=== PATIENT | male | born 1990 | race Caucasian/White ===

== ENCOUNTER 2021-02-20 20:19 | Inpatient (IN) ==
[2021-02-20] MEDS ORDERED: MULTI-VITAMIN INFUSION 10 ML, THIAMINE HCL 100 MG, FOLIC ACID 1 MG in SODIUM CHLORIDE 0... IV ONE (21:29)
--- NOTE | 2021-02-20 21:40 | Emergency Department Note ---
Impression & Plan Elevated bilirubin, Alcohol abuse, Anemia, macrocytic, Confusion ED Provider Note Provider: Alexandru Boykin MD DATE OF SERVICE: 02/20/2021 CHIEF COMPLAINT: Jaundice, weakness, nausea, confusion HISTORY OF PRESENT ILLNESS: Patient is a 30-year-old gentleman with a history of alcohol abuse and IV drug abuse with esophageal varices and prior history of fungemia with bilateral lower extremity neuropathy presenting here today with friend reporting that over the past several days he has noticed worsening fatigue, confusion, and yellowish discoloration. 30-year-old gentleman extensive past medical history now presenting with some confusion and jaundice and fatigue symptoms. States his lower extremity neuropathy pain has worsened as well. Denies any back pain or abdominal pain. Denies chest pain or shortness of breath. No significant headache. Denies any trauma. Denies any bloody or black stools. Dorsal some nausea. Some decreased intake the last several days. Patient states he was recently seen at [facility] under a month ago for an infection in his right arm that is much improved after a short course of clindamycin. Patient denies any saddle anesthesia. Patient does report that he is followed with [place] in the past. [facility] records indicate patient had an AST of 359, ALT of 133, alkaline phosphatase of 354 and a T bili of 5.7 on May 17. Available blood work more recently from January 31 showed a white blood cell count of 3.5, hemoglobin 9.9, platelet count of 214, BUN 6, creatinine 0.5, sodium 132, potassium 3.4, AST 329, alkaline phosphatase 492, ALT 49, total bilirubin 2.1 REVIEW OF SYSTEMS: A total of 10 review of systems was obtained and negative except as stated above in the HPI. PAST MEDICAL HISTORY: As noted above MEDICATIONS: Reviewed home medications with the patient SOCIAL HISTORY: Continued alcohol use, denies current IV drug abuse but is on Subutex PHYSICAL EXAM: GENERAL: alert and oriented in no acute distress on stretcher but fatigued appearing Head: normocephalic and atraumatic EYES: No injection however with significant bilateral icterus PERRL NECK: Trachea midline. Supple. ENT: Mucous membranes pink and moist. LUNGS: Airway patent. No retractions. Breath sounds clear HEART: Regular tachycardia rate and rhythm. No chest wall tenderness ABDOMEN: Soft and non-tender, without guarding or rebound. SKIN: Acyanotic but jaundiced, warm, dry EXTREMITIES: Without significant swelling of the lower extremities. Patient with no obvious tenderness of the upper extremities with a healing area with kyle e slight purplish discoloration for recent infection in the distal right bicep area. NEUROLOGICAL: No aphasia. No facial droop or slurred speech. Intact strength and movement of the upper extremities. Mild tenderness in decree sensation in the bilateral feet. EK bpm sinus tachycardia without PVC or PAC. QTc 496. No acute ST segment elevation or depression noted. CONTINUOUS CARDIAC MONITORING: was ordered and showed a heart rate of bpm in sinus tachycardia 100s to 120s. Patient's laboratory studies and imaging reviewed. Differential includes gastrointestinal, infection, dehydration, metabolic abnormality, hypo/hyperglycemia, electrolyte disturbance, anemia, hypoxia, cardiac sources, intracerebral event, toxicologic, neurologic, as well as other pathologies. IMPRESSION/MEDICAL DECISION MAKING: Patient with appears to be some decompensation of his liver function. Likely a lcoholic in nature given the history and the elevated alcohol level today. No fevers reported. No leukocytosis. Procalcitonin mildly elevated but of unclear etiology. Ammonia is not elevated. C-reactive protein mildly elevated 4.8. AST and alkaline phosphatase elevated in the 500s. Lactate mildly abated at 4.3. No signs of significant renal dysfunction. Albumin significantly low. Hepatitis panel was sent. Patient without significant neurological deficits or history of trauma but some new thrombocytopenia is noted. Question if this is related to his alcohol use versus other infectious process. Does not have a clear bacterial source. Blood cultures were sent however. Macrocytosis and anemia is noted without a low B12. Given a banana bag here and some lactated Ringer's. Vital signs do not have any significant hypotension but some tachycardia is noted and denies any shortness of breath and low suspicion at this time for PE. INR is minimally elevated at 1.4. Denies current IV drug use. Has been on Suboxone per his report. Patient is on a significant dose of gabapentin for his neuropathy may be contributing to his fatigue and confusion. Will send for CT the head and the abdomen pelvis to exclude occult pathology here. Reports as below. Patient does not have a surgical abdomen and I have a low suspicion for acute intra-abdominal pathology such as cholecystitis. Discussed with the hospitalist for further care as an inpatient given his worsened LFTs. Patient does not appear to be in acute alcohol withdrawal at this time. DIAGNOSIS: Elevated bilirubin, confusion, macrocytic anemia, alcohol abuse DISPOSITION: Hospitalist will evaluate for further care Patient was agreeable with this plan. Preliminary Findings Only See Final Report For Complete Findings CT HEAD: No acute abnormality. No acute intracranial hemorrhage or abnormal extra-axial fluid collection. No acute stroke. Ventricles and sulci normal in size for age. No midline shift. No paranasal sinus air-fluid level. No fracture. Radiologist: Filiberto Spencer M.D. Study ready at 23:39 and initial results transmitted at 23:50 Preliminary Findings Only See Final Report For Complete Findings CT ABDOMEN & PELVIS With Contrast: No bowel obstruction or ileus. Abundant stool throughout the colon. No evidence for appendicitis. No evidence for diverticulitis. No free fluid. Liver is a large 28 x 2 cm in length a diffusely hypodense/fatty. Probable gallbladder sludge. No calcified gallstones. No biliary ductal dilation. Pancreas is unremarkable. Spleen is enlarged 14.8 cm length.. No obstructive uropathy. Kidneys are unremarkable. Urinary bladder is partially contracted with nonspecific wall thickening. Radiologist: Filiberto Spencer M.D. Study ready at 23:38 and initial results transmitted at 00:02 Past Med/Surg History Medical History Alcohol abuse Depression GERD (gastroesophageal reflux disease) IV drug abuse Surgical History History of esophagogastroduodenoscopy (EGD) Family History Grandfather Heart disease Diabetes Stroke Mother Diabetes Social History Smoking Status: Current every day smoker Tobacco Type: Cigarettes packs per day: 0.25; Second Hand Exposure: No; Hx Alcohol Use: Yes Alcohol type: hard liquor Alcohol Intake Frequency: 4 or More x per/Week Alcohol Intake Frequency Comment: drinks wiskey everyday Hx Substance Use: Yes Non-Prescribed Medications: Crack / Cocaine, IV Drugs and Marijuana Non-Prescribed Medications Comment: suboxone Last Used Substance: Days (ago) Last Used Substance Other:: 08/30/20 Substance Use Type Other:: subutex Preferred Language: American Communication Ability: Effective Visual Impairment: No Limitations Hearing Ability: Normal Cutting Room Supervisor Required: No Beliefs That Will Affect Care: None marital status: Single Current Living Situation: Alone Current Living Situation Comment: brother and mother current occupational status: employed 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 [employer] Feels Safe at Home: Yes Childhood Exposure to Second-Hand Smoke: No Dental Care, Regularly: No Seatbelt Use: always Sunscreen Use: Yes Assistive Devices: None Allergies Allergies Allergy/AdvReac Type Severity Reaction Status Date / Time No Known Allergies Allergy Verified 02/20/21 21:05 Home Meds Home Medications Medication Instructions Recorded Confirmed vitamin B complex 1 cap PO DAILY 08/23/20 02/20/21 clonazepam 0.5 mg tablet 0.5 mg PO DAILY PRN 08/31/20 02/20/21 sucralfate 1 gram tablet 1 g PO QID PRN tab 09/20/20 02/20/21 potassium gluconate 595 mg (99 mg) 595 mg PO DAILY 02/20/21 02/20/21 tablet Previous Rx's Medication Instructions Recorded multivitamin 1 tab PO DAILY #90 tab 07/09/20 thiamine HCl (vitamin B1) 100 mg 100 mg PO DAILY #90 tab 07/09/20 tablet folic acid 1 mg tablet 1 mg PO DAILY #90 tab 09/20/20 omeprazole 40 mg capsule,delayed 40 mg PO DAILY #30 cap 09/20/20 release gabapentin 800 mg tablet 800 mg PO TID #90 tab 11/22/20 Results & Data (ED) Vital Signs Vital Signs - 24 hr 02/20/21 20:24 02/20/21 21:00 02/20/21 21:19 Temperature 36.7 C Temperature Source Temporal Artery Scan Pulse Rate 131 H 120 H Pulse Rate from SpO2 Sensor 120 H Respiratory Rate 20 19 Respiratory Effort / Characteristics Non-Labored Spontaneous Respiratory Depth Normal Respiratory Pattern Regular Blood Pressure 112/78 121/71 Blood Pressure Mean 89 87 Pulse Oximetry 95 94 95 Oxygen Delivery Method Room Air Room Air Sepsis Recent Fever Within 48 Hours No Sepsis New/Unexplained Change in Mental Status No Sepsis Action Taken by Nursing No Action Required 02/20/21 21:30 02/20/21 22:00 02/20/21 22:30 Temperature Temperature Source Pulse Rate 123 H 112 H 120 H Pulse Rate from SpO2 Sensor 119 H 113 H 120 H Respiratory Rate 12 14 15 Respiratory Effort / Characteristics Respiratory Depth Respiratory Pattern Blood Pressure 103/71 112/72 118/79 Blood Pressure Mean 81 85 92 Pulse Oximetry 95 95 96 Oxygen Delivery Method Sepsis Recent Fever Within 48 Hours Sepsis New/Unexplained Change in Mental Status Sepsis Action Taken by Nursing 02/20/21 23:00 02/20/21 23:30 Temperature Temperature Source Pulse Rate 113 H Pulse Rate from SpO2 Sensor 113 H Respiratory Rate 10 L Respiratory Effort / Characteristics Respiratory Depth Respiratory Pattern Blood Pressure 119/80 116/78 Blood Pressure Mean 93 90 Pulse Oximetry 94 Oxygen Delivery Method Sepsis Recent Fever Within 48 Hours Sepsis New/Unexplained Change in Mental Status Sepsis Action Taken by Nursing Laboratory Data Result diagrams: 02/20/21 20:45 02/20/21 20:45 Lab Results 02/20/21 02/20/21 02/20/21 Range/Units 20:45 20:45 20:45 WBC 5.88 (4.8-10.8) K/uL RBC 2.96 L (4.7-6.1) M/uL Hgb 9.5 L (14.0-18.0) g/dL Hct 30.0 L (42-52) % MCV 101.4 H (80-100) fL MCH 32.1 (25-34) pg MCHC 31.7 L (32-36) g/dL RDW Std Deviation 56.1 H (36.4-46.3) fL RDW Coeff of Armani 15.3 H (11.5-14.5) % Plt Count 104 L (130-400) K/uL MPV 10.5 H (7.4-10.4) fL Immature Gran % (Auto) 0.3 % Neut % (Auto) 57.9 % Lymph % (Auto) 35.7 % Robeson % (Auto) 5.8 % Eos % (Auto) 0.0 % Baso % (Auto) 0.3 % Neut # (Auto) 3.40 (1.4-6.5) K/uL Lymph # (Auto) 2.10 (1.2-3.4) K/uL Robeson # (Auto) 0.34 (0.11-0.59) K/uL Eos # (Auto) 0.00 (0-0.5) K/uL Baso # (Auto) 0.02 (0-0.2) K/uL Immature Gran # (Auto) 0.02 (0.00-0.02) K/uL PT 13.4 H (9.0-12.0) Seconds INR 1.4 H (0.9-1.1) Sodium 134 L (136-145) mmol/L Potassium 3.2 L (3.5-5.1) mmol/L Chloride 93 L (98-107) mmol/L Carbon Dioxide 28 (21-32) mmol/L Anion Gap 13.0 H (3-11) BUN 3 L (7-18) mg/dl Creatinine 0.64 (0.6-1.4) mg/dl Est Cr Clr Drug Dosing 146.9 ml/min Est GFR ( Amer) > 150.0 ml/min Est GFR (Non-Af Amer) 130.5 ml/min BUN/Creatinine Ratio 5.2 L (10-20) Glucose 92 (70-99) mg/dl Lactate (0.4-2.0) mmol/L Calcium 8.6 (8.5-10.1) mg/dl Magnesium 2.2 (1.8-2.4) mg/dl Total Bilirubin 8.7 H (0.2-1) mg/dl AST 583 H (15-37) U/L ALT 73 (12-78) U/L Alkaline Phosphatase 557 H (45-117) U/L Ammonia (11-32) umol/L Troponin I < 0.015 (0-0.045) ng/ml C-Reactive Protein 4.82 H (0-0.29) mg/dl Total Protein 8.7 H (6.4-8.2) gm/dl Albumin 2.0 L (3.4-5.0) gm/dl Globulin 6.7 H (2.5-4.0) gm/dl Albumin/Globulin Ratio 0.3 L (0.9-2) Vitamin B12 (193-986) pg/ml Procalcitonin (0-0.5) ng/ml TSH 4.530 H (0.300-4.500) uIu/ml Free T4 1.10 (0.8-1.6) ng/dl Specimen Hemolysis Ethyl Alcohol mg/dL (0-3) mg/dl COVID-19 Eval Order SARS-CoV-2 (PCR) (Negative) 02/20/21 02/20/21 02/20/21 Range/Units 20:45 21:43 21:43 WBC (4.8-10.8) K/uL RBC (4.7-6.1) M/uL Hgb (14.0-18.0) g/dL Hct (42-52) % MCV (80-100) fL MCH (25-34) pg MCHC (32-36) g/dL RDW Std Deviation (36.4-46.3) fL RDW Coeff of Armani (11.5-14.5) % Plt Count (130-400) K/uL MPV (7.4-10.4) fL Immature Gran % (Auto) % Neut % (Auto) % Lymph % (Auto) % Robeson % (Auto) % Eos % (Auto) % Baso % (Auto) % Neut # (Auto) (1.4-6.5) K/uL Lymph # (Auto) (1.2-3.4) K/uL Robeson # (Auto) (0.11-0.59) K/uL Eos # (Auto) (0-0.5) K/uL Baso # (Auto) (0-0.2) K/uL Immature Gran # (Auto) (0.00-0.02) K/uL PT (9.0-12.0) Seconds INR (0.9-1.1) Sodium (136-145) mmol/L Potassium (3.5-5.1) mmol/L Chloride (98-107) mmol/L Carbon Dioxide (21-32) mmol/L Anion Gap (3-11) BUN (7-18) mg/dl Creatinine (0.6-1.4) mg/dl Est Cr Clr Drug Dosing ml/min Est GFR ( Amer) ml/min Est GFR (Non-Af Amer) ml/min BUN/Creatinine Ratio (10-20) Glucose (70-99) mg/dl Lactate 4.3 H* (0.4-2.0) mmol/L Calcium (8.5-10.1) mg/dl Magnesium (1.8-2.4) mg/dl Total Bilirubin (0.2-1) mg/dl AST (15-37) U/L ALT (12-78) U/L Alkaline Phosphatase (45-117) U/L Ammonia 13.3 (11-32) umol/L Troponin I (0-0.045) ng/ml C-Reactive Protein (0-0.29) mg/dl Total Protein (6.4-8.2) gm/dl Albumin (3.4-5.0) gm/dl Globulin (2.5-4.0) gm/dl Albumin/Globulin Ratio (0.9-2) Vitamin B12 (193-986) pg/ml Procalcitonin 1.24 H (0-0.5) ng/ml TSH (0.300-4.500) uIu/ml Free T4 (0.8-1.6) ng/dl Specimen Hemolysis Ethyl Alcohol mg/dL (0-3) mg/dl COVID-19 Eval Order SARS-CoV-2 (PCR) (Negative) 02/20/21 02/20/21 02/20/21 Range/Units 21:43 21:53 22:30 WBC (4.8-10.8) K/uL RBC (4.7-6.1) M/uL Hgb (14.0-18.0) g/dL Hct (42-52) % MCV (80-100) fL MCH (25-34) pg MCHC (32-36) g/dL RDW Std Deviation (36.4-46.3) fL RDW Coeff of Armani (11.5-14.5) % Plt Count (130-400) K/uL MPV (7.4-10.4) fL Immature Gran % (Auto) % Neut % (Auto) % Lymph % (Auto) % Robeson % (Auto) % Eos % (Auto) % Baso % (Auto) % Neut # (Auto) (1.4-6.5) K/uL Lymph # (Auto) (1.2-3.4) K/uL Robeson # (Auto) (0.11-0.59) K/uL Eos # (Auto) (0-0.5) K/uL Baso # (Auto) (0-0.2) K/uL Immature Gran # (Auto) (0.00-0.02) K/uL PT (9.0-12.0) Seconds INR (0.9-1.1) Sodium (136-145) mmol/L Potassium (3.5-5.1) mmol/L Chloride (98-107) mmol/L Carbon Dioxide (21-32) mmol/L Anion Gap (3-11) BUN (7-18) mg/dl Creatinine (0.6-1.4) mg/dl Est Cr Clr Drug Dosing ml/min Est GFR ( Amer) ml/min Est GFR (Non-Af Amer) ml/min BUN/Creatinine Ratio (10-20) Glucose (70-99) mg/dl Lactate (0.4-2.0) mmol/L Calcium (8.5-10.1) mg/dl Magnesium (1.8-2.4) mg/dl Total Bilirubin (0.2-1) mg/dl AST (15-37) U/L ALT (12-78) U/L Alkaline Phosphatase (45-117) U/L Ammonia (11-32) umol/L Troponin I (0-0.045) ng/ml C-Reactive Protein (0-0.29) mg/dl Total Protein (6.4-8.2) gm/dl Albumin (3.4-5.0) gm/dl Globulin (2.5-4.0) gm/dl Albumin/Globulin Ratio (0.9-2) Vitamin B12 1592 H (193-986) pg/ml Procalcitonin (0-0.5) ng/ml TSH (0.300-4.500) uIu/ml Free T4 (0.8-1.6) ng/dl Specimen Hemolysis Ethyl Alcohol mg/dL 293.9 H (0-3) mg/dl COVID-19 Eval Order Covid19 at [facility] SARS-CoV-2 (PCR) (Negative) 02/20/21 Range/Units 22:30 WBC (4.8-10.8) K/uL RBC (4.7-6.1) M/uL Hgb (14.0-18.0) g/dL Hct (42-52) % MCV (80-100) fL MCH (25-34) pg MCHC (32-36) g/dL RDW Std Deviation (36.4-46.3) fL RDW Coeff of Armani (11.5-14.5) % Plt Count (130-400) K/uL MPV (7.4-10.4) fL Immature Gran % (Auto) % Neut % (Auto) % Lymph % (Auto) % Robeson % (Auto) % Eos % (Auto) % Baso % (Auto) % Neut # (Auto) (1.4-6.5) K/uL Lymph # (Auto) (1.2-3.4) K/uL Robeson # (Auto) (0.11-0.59) K/uL Eos # (Auto) (0-0.5) K/uL Baso # (Auto) (0-0.2) K/uL Immature Gran # (Auto) (0.00-0.02) K/uL PT (9.0-12.0) Seconds INR (0.9-1.1) Sodium (136-145) mmol/L Potassium (3.5-5.1) mmol/L Chloride (98-107) mmol/L Carbon Dioxide (21-32) mmol/L Anion Gap (3-11) BUN (7-18) mg/dl Creatinine (0.6-1.4) mg/dl Est Cr Clr Drug Dosing ml/min Est GFR ( Amer) ml/min Est GFR (Non-Af Amer) ml/min BUN/Creatinine Ratio (10-20) Glucose (70-99) mg/dl Lactate (0.4-2.0) mmol/L Calcium (8.5-10.1) mg/dl Magnesium (1.8-2.4) mg/dl Total Bilirubin (0.2-1) mg/dl AST (15-37) U/L ALT (12-78) U/L Alkaline Phosphatase (45-117) U/L Ammonia (11-32) umol/L Troponin I (0-0.045) ng/ml C-Reactive Protein (0-0.29) mg/dl Total Protein (6.4-8.2) gm/dl Albumin (3.4-5.0) gm/dl Globulin (2.5-4.0) gm/dl Albumin/Globulin Ratio (0.9-2) Vitamin B12 (193-986) pg/ml Procalcitonin (0-0.5) ng/ml TSH (0.300-4.500) uIu/ml Free T4 (0.8-1.6) ng/dl Specimen Hemolysis Ethyl Alcohol mg/dL (0-3) mg/dl COVID-19 Eval Order SARS-CoV-2 (PCR) NEGATIVE (Negative) Administered Medications Discontinued Medications Multivitamins 10 ml/ Thiamine HCl 100 mg/ Folic Acid 1 mg/Sodium Chloride 1,011.2 mls @ 1,011.2 mls/hr IV .Q1H ONE Stop: 02/20/21 22:28 Last Infusion: 02/20/21 23:32 Dose: 0 mls/hr Documented by: [id number] Admin: 02/20/21 21:59 Dose: 1,011.2 mls/hr Documented by: [id number] Lactated Ringer's (Lr) 1,000 mls @ 999 mls/hr IV .Q1H1M ONE Stop: 02/20/21 23:59 Last Admin: 02/20/21 23:31 Dose: 999 mls/hr Documented by: [id number] Ioversol (Optiray 320 100ml) 93 ml IV ONCE ONE Stop: 02/20/21 23:13 Last Admin: 02/20/21 23:13 Dose: 93 ml Documented by: [id number] Discharge Plan Visit Data Chief Complaint: Vertigo Stated Complaint: PAIN, DIZZINESS, CONFUSION, NAUSEA, JAUNDICE ED Provider: Alexandru Boykin Discharge Problem: Elevated bilirubin, Alcohol abuse, Anemia, macrocytic, Confusion Forms Stand Alone Forms: [facility] Prescriptions Prescriptions: No Action gabapentin 800 mg tablet 800 mg PO TID Qty: 90 RF: 2 thiamine HCl (vitamin B1) 100 mg tablet 100 mg PO DAILY Qty: 90 RF: 3 multivitamin Tablet 1 tab PO DAILY Qty: 90 RF: 3 sucralfate 1 gram tablet 1 g PO QID PRN (Reason: ABD PAIN) RF: 0 omeprazole 40 mg capsule,delayed release(DR/EC) 40 mg PO DAILY Qty: 30 RF: 5 folic acid 1 mg tablet 1 mg PO DAILY Qty: 90 RF: 3 vitamin B complex Capsule 1 cap PO DAILY RF: 0 potassium gluconate 595 mg (99 mg) Tablet 595 mg PO DAILY RF: 0 clonazepam 0.5 mg Tablet 0.5 mg PO DAILY PRN (Reason: Anxiety) RF: 0 Referrals Referrals: Filiberto Burt MD [Primary Care Provider] -
[2021-02-20 21:54] LABS: Basophils # (auto) 0.02 K/uL (0-0.2); Basophils % (auto) 0.3 %; Hemoglobin 9.5 g/dL (14.0-18.0); Immature Granulocytes # (auto) 0.02 K/uL (0.00-0.02); Immature Granulocytes % (auto) 0.3 %; Lymphocytes % (auto) 35.7 %; Mean Corpuscular Hemoglobin 32.1 pg (25-34); Mean Corpuscular Hgb Conc 31.7 g/dL (32-36); Mean Corpuscular Volume 101.4 fL (80-100); Mean Platelet Volume 10.5 fL (7.4-10.4); Monocytes # (auto) 0.34 K/uL (0.11-0.59); Monocytes % (auto) 5.8 %; Neutrophils % (auto) 57.9 %; Platelet Count 104 K/uL (130-400); RDW Coefficient of Variation 15.3 % (11.5-14.5); RDW Standard Deviation 56.1 fL (36.4-46.3); Red Blood Count 2.96 M/uL (4.7-6.1); White Blood Count 5.88 K/uL (4.8-10.8)
[2021-02-20 22:02] LABS: INR 1.4 (0.9-1.1); Prothrombin Time 13.4 Seconds (9.0-12.0)
[2021-02-20 22:03] LABS: Alanine Aminotransferase 73 U/L (12-78); Aspartate Aminotransferase 583 U/L (15-37); BUN Creatinine Ratio 5.2 (10-20); Blood Urea Nitrogen 3 mg/dl (7-18); C Reactive Protein 4.82 mg/dl (0-0.29); Calcium 8.6 mg/dl (8.5-10.1); Carbon Dioxide 28 mmol/L (21-32); Chloride 93 mmol/L (98-107); Creatinine Clr Calc Pharmacy 146.9 ml/min; Est GFR (African American) > 150.0 ml/min; Est GFR (Non-African American) 130.5 ml/min; Glucose 92 mg/dl (70-99); Magnesium 2.2 mg/dl (1.8-2.4); Potassium 3.2 mmol/L (3.5-5.1); Sodium 134 mmol/L (136-145)
[2021-02-20 22:12] LABS: Albumin Globulin Ratio 0.3 (0.9-2); Alkaline Phosphatase 557 U/L (45-117); Bilirubin,Total 8.7 mg/dl (0.2-1); Globulin 6.7 gm/dl (2.5-4.0); Total Protein 8.7 gm/dl (6.4-8.2); Troponin I < 0.015 ng/ml (0-0.045)
[2021-02-20] MEDS ORDERED: LACTATED RINGER'S 1,000 ML IV ONE (22:59)
[2021-02-20] MEDS ORDERED: OPTIRAY 320 100ml IV ONE (23:12)
--- NOTE | 2021-02-20 23:58 | History & Physical Report ---
Date of Service February 20, 2021 Assessment & Plan (1) Acute on chronic alcoholic liver disease: Plan: Patient presents with symptoms of jaundice, weakness and confusion. Total bilirubin has increased from 1.4-8.7 INR has increased from 1.1-1.4 AST has increased from 274-583 Alkaline phosphatase has increased from 340-557 CT scan shows hepatosplenomegaly, but no evidence of cirrhosis. Ammonia level is normal at 13.3 We will order an MRCP for the a.m. Consult gastroenterology (2) Hepatosplenomegaly: Plan: See above (3) Alcoholism: Plan: Place on [facility] protocol. I had a long discussion with patient and his brother in the ED regarding need for cessation Thiamine 100 mg p.o. every morning Folic acid 1 mg p.o. every morning Multivitamin daily (4) Anemia, macrocytic: Plan: Hemoglobin 9.5 upon admission, with range 9.3-11.3 (5) IV drug abuse: Plan: Chronic issue, discussed need for cessation (6) Depression: Plan: Depression/anxiety- Continue clonazepam (7) GERD (gastroesophageal reflux disease): Plan: Continue omeprazole/pantoprazole Continue sucralfate (8) Neuropathy, peripheral: Plan: Continue vitamin supplementation (9) Confusion: Plan: See above (10) Weakness: Plan: See above (11) Elevated bilirubin: Plan: See above (12) Coagulopathy: Plan: See above History of Present Illness Chief Complaint: The patient presents to the emergency department with his brother, with symptoms of jaundice, generalized weakness and confusion Primary Care Provider: Filiberto Burt MD The patient is a 30-year-old male with a past medical history of alcohol abuse, alcoholism, [employer], continuous IV drug abuse, esophageal varices positive blood cultures, peripheral neuropathy, folate deficiency, GERD, depression and bilateral lower extremity pain. He presents to the emergency department with complaint of yellowing of skin, generalized weakness and confusion over the past several days. He continues to have daily alcohol use, and alcohol level upon admission was 293.9. Other significant laboratory abnormalities: Hemoglobin 9.5, hematocrit 30.0, platelets 104, sodium 134, potassium 3.2, lactic acid 4.3, INR 1.4, albumin 2.0, AST 583, ALT 73, alkaline phosphatase 557, total bilirubin 8.7. COVID-19 test negative in the ED CT scan of abdomen and pelvis: Abundant stool throughout the colon no appendicitis or diverticulitis. No free fluid. Liver is a large 28 x 2 cm in length and diffusely hypodense/fatty. Probable gallbladder sludge. No calcified gallstones. No biliary ductal dilatation. Pancreas is unremarkable. Spleen is enlarged at 14.[address] scan of the head was normal Allergies Allergy/AdvReac Type Severity Reaction Status Date / Time No Known Allergies Allergy Verified 02/20/21 21:05 Home Medications Medication Instructions Recorded Confirmed Type multivitamin 1 tab PO DAILY #90 tab 07/09/20 02/20/21 Rx thiamine HCl (vitamin B1) 100 mg 100 mg PO DAILY #90 tab 07/09/20 02/20/21 Rx tablet vitamin B complex 1 cap PO DAILY 08/23/20 02/20/21 History clonazepam 0.5 mg tablet 0.5 mg PO DAILY PRN 08/31/20 02/20/21 History folic acid 1 mg tablet 1 mg PO DAILY #90 tab 09/20/20 02/20/21 Rx omeprazole 40 mg capsule,delayed 40 mg PO DAILY #30 cap 09/20/20 02/20/21 Rx release sucralfate 1 gram tablet 1 g PO QID PRN tab 09/20/20 02/20/21 History gabapentin 800 mg tablet 800 mg PO TID #90 tab 11/22/20 02/20/21 Rx potassium gluconate 595 mg (99 mg) 595 mg PO DAILY 02/20/21 02/20/21 History tablet Past Med/Surg History Medical History Alcohol abuse Depression GERD (gastroesophageal reflux disease) IV drug abuse Surgical History History of esophagogastroduodenoscopy (EGD) Family History Grandfather Heart disease Diabetes Stroke Mother Diabetes Social History Smoking Status: Current every day smoker Tobacco Type: Cigarettes packs per day: 0.25; Second Hand Exposure: No; Hx Alcohol Use: Yes Alcohol type: hard liquor Alcohol Intake Frequency: 4 or More x per/Week Alcohol Intake Frequency Comment: drinks wiskey everyday Hx Substance Use: Yes Non-Prescribed Medications: Crack / Cocaine, IV Drugs and Marijuana Non-Prescribed Medications Comment: suboxone Last Used Substance: Days (ago) Last Used Substance Other:: 08/30/20 Substance Use Type Other:: subutex Preferred Language: [place] Communication Ability: Effective Visual Impairment: No Limitations Hearing Ability: Normal Communication Equipment Mechanic Required: No Beliefs That Will Affect Care: None marital status: Single Current Living Situation: Alone Current Living Situation Comment: brother and mother current occupational status: employed 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 [employer] Feels Safe at Home: Yes Childhood Exposure to Second-Hand Smoke: No Dental Care, Regularly: No Seatbelt Use: always Sunscreen Use: Yes Assistive Devices: None Review of Systems Review of Systems: The patient denies chest pain, palpitations, shortness of breath, dyspnea on exertion, cough, lower extremity swelling, sore throat, fevers, chills, sweats, nausea, vomiting, diarrhea , constipation, blood in urine or stool, dysuria, urinary frequency or urgency, lightheadedness, dizziness, headache, memory loss, loss of consciousness, rash, abnormal bruising or bleeding, imbalance, focal weakness, numbness or tingling in arms or legs, generalized arthralgias or myalgias, back or neck pain, or night sweats. The review of systems is otherwise negative other than for that already noted above, and at least 10 systems have been reviewed. Physical Exam Physical Exam: The patient is awake, alert and oriented 3, appears jaundiced, normocephalic and atraumatic, lying in bed and in no acute distress. HEENT--PERRL, EOMI, mucous membranes and oropharynx dry. Scleral icterus noted Neck--supple. No JVD. No bruits. Thyroid normal, trachea midline, no adenopathy. Heart--normal S1 and S2. No murmurs, rubs or gallops. Lungs--clear bilaterally, no respiratory distress, no accessory muscle use. Abdomen--normal bowel sounds and soft. Nontender. Nondistended. Large palpable liver Extremities--no cyanosis or clubbing. No edema. Dermatologic--jaundice Neurologic--cranial nerves II through XII grossly intact. Rheumatologic--normal range of motion. Psychiatric--normal affect. Results & Data Results & Data ([facility]) Vital Signs (Past 12 Hours) Vital Signs Temp Pulse Resp BP Pulse Ox 02/20/21 23:30 113 H 10 L 116/78 94 02/20/21 23:00 119/80 02/20/21 22:30 120 H 15 118/79 96 02/20/21 22:00 112 H 14 112/72 95 02/20/21 21:30 123 H 12 103/71 95 02/20/21 21:19 95 02/20/21 21:00 120 H 19 121/71 94 02/20/21 20:24 98.1 F 131 H 20 112/78 95 Laboratory Results Laboratory Results WBC 5.88 K/uL (4.8-10.8) 02/20/21 20:45 RBC 2.96 M/uL (4.7-6.1) L 02/20/21 20:45 Hgb 9.5 g/dL (14.0-18.0) L 02/20/21 20:45 Hct 30.0 % (42-52) L 02/20/21 20:45 MCV 101.4 fL (80-100) H 02/20/21 20:45 MCH 32.1 pg (25-34) 02/20/21 20:45 MCHC 31.7 g/dL (32-36) L 02/20/21 20:45 RDW Std Deviation 56.1 fL (36.4-46.3) H 02/20/21 20:45 RDW Coeff of Armani 15.3 % (11.5-14.5) H 02/20/21 20:45 Plt Count 104 K/uL (130-400) L 02/20/21 20:45 MPV 10.5 fL (7.4-10.4) H 02/20/21 20:45 Immature Gran % (Auto) 0.3 % 02/20/21 20:45 Neut % (Auto) 57.9 % 02/20/21 20:45 Lymph % (Auto) 35.7 % 02/20/21 20:45 Weber % (Auto) 5.8 % 02/20/21 20:45 Eos % (Auto) 0.0 % 02/20/21 20:45 Baso % (Auto) 0.3 % 02/20/21 20:45 Neut # (Auto) 3.40 K/uL (1.4-6.5) 02/20/21 20:45 Lymph # (Auto) 2.10 K/uL (1.2-3.4) 02/20/21 20:45 Weber # (Auto) 0.34 K/uL (0.11-0.59) 02/20/21 20:45 Eos # (Auto) 0.00 K/uL (0-0.5) 02/20/21 20:45 Baso # (Auto) 0.02 K/uL (0-0.2) 02/20/21 20:45 Immature Gran # (Auto) 0.02 K/uL (0.00-0.02) 02/20/21 20:45 PT 13.4 Seconds (9.0-12.0) H 02/20/21 20:45 INR 1.4 (0.9-1.1) H 02/20/21 20:45 Sodium 134 mmol/L (136-145) L 02/20/21 20:45 Potassium 3.2 mmol/L (3.5-5.1) L 02/20/21 20:45 Chloride 93 mmol/L (98-107) L 02/20/21 20:45 Carbon Dioxide 28 mmol/L (21-32) 02/20/21 20:45 Anion Gap 13.0 (3-11) H 02/20/21 20:45 BUN 3 mg/dl (7-18) L 02/20/21 20:45 Creatinine 0.64 mg/dl (0.6-1.4) 02/20/21 20:45 Est Cr Clr Drug Dosing 146.9 ml/min 02/20/21 20:45 Est GFR ( Amer) > 150.0 ml/min 02/20/21 20:45 Est GFR (Non-Af Amer) 130.5 ml/min 02/20/21 20:45 BUN/Creatinine Ratio 5.2 (10-20) L 02/20/21 20:45 Glucose 92 mg/dl (70-99) 02/20/21 20:45 Lactate 4.0 mmol/L (0.4-2.0) H* 02/21/21 00:23 Calcium 8.6 mg/dl (8.5-10.1) 02/20/21 20:45 Magnesium 2.2 mg/dl (1.8-2.4) 02/20/21 20:45 Total Bilirubin 8.7 mg/dl (0.2-1) H 02/20/21 20:45 AST 583 U/L (15-37) H 02/20/21 20:45 ALT 73 U/L (12-78) 02/20/21 20:45 Alkaline Phosphatase 557 U/L (45-117) H 02/20/21 20:45 Ammonia 13.3 umol/L (11-32) 02/20/21 21:43 Troponin I < 0.015 ng/ml (0-0.045) 02/20/21 20:45 C-Reactive Protein 4.82 mg/dl (0-0.29) H 02/20/21 20:45 Total Protein 8.7 gm/dl (6.4-8.2) H 02/20/21 20:45 Albumin 2.0 gm/dl (3.4-5.0) L 02/20/21 20:45 Globulin 6.7 gm/dl (2.5-4.0) H 02/20/21 20:45 Albumin/Globulin Ratio 0.3 (0.9-2) L 02/20/21 20:45 Vitamin B12 1592 pg/ml (193-986) H 02/20/21 21:43 Procalcitonin 1.24 ng/ml (0-0.5) H 02/20/21 20:45 TSH 4.530 uIu/ml (0.300-4.500) H 02/20/21 20:45 Free T4 1.10 ng/dl (0.8-1.6) 02/20/21 20:45 Specimen Hemolysis 02/20/21 20:45 Urine Color Dark Yellow 02/21/21 01:35 Urine Appearance Clear (Clear) 02/21/21 01:35 Urine pH 6.5 (4.5-7.5) 02/21/21 01:35 Ur Specific [place] > 1.045 (1.000-1.030) H 02/21/21 01:35 Urine Protein Trace (Negative) H 02/21/21 01:35 Urine Glucose (UA) Negative (Negative) 02/21/21 01:35 Urine Ketones Negative (Negative) 02/21/21 01:35 Urine Blood Negative (Negative) 02/21/21 01:35 Urine Nitrite Positive (Negative) A 02/21/21 01:35 Urine Bilirubin 3+ (Negative) H 02/21/21 01:35 Urine Urobilinogen Negative (Negative) 02/21/21 01:35 Ur Leukocyte Esterase Trace (Negative) H 02/21/21 01:35 Urine WBC (Auto) 10-30 /hpf (0-5) H 02/21/21 01:35 Urine RBC (Auto) 0-4 /hpf (0-4) 02/21/21 01:35 U Hyaline Cast (Auto) 0 /lpf (0-5) 02/21/21 01:35 U Epithel Cells (Auto) 10-20 /lpf (0-5) H 02/21/21 01:35 Urine Bacteria (Auto) 4+ (Negative) H 02/21/21 01:35 Ethyl Alcohol mg/dL 293.9 mg/dl (0-3) H 02/20/21 21:53 COVID-19 Eval Order Covid19 at [facility] 02/20/21 22:30 SARS-CoV-2 (PCR) NEGATIVE (Negative) 02/20/21 22:30 Diagnostic Findings [facility] Patient: AMRIK PACHECO (Male) : 88 Status: ER Date: 02/20/21 23:17 Room #: History: LIGHTHEADEDNESS ELEVATED LFT'S APPENDIX PRESENT OPTIRAY 320 93ML EK/MALICK Slices: 60 Priors: Tech: Daniel Chin @ [id number] Exams: CT HEAD Contrast: Accession Numbers: [id number] Referring Physician: REFERRED SELF Preliminary Findings Only See Final Report For Complete Findings CT HEAD: No acute abnormality. No acute intracranial hemorrhage or abnormal extra-axial fluid collection. No acute stroke. Ventricles and sulci normal in size for age. No midline shift. No paranasal sinus air-fluid level. No fracture. Radiologist: Filiberto Spencer M.D. Study ready at 23:39 and initial results transmitted at 23:50 *This report constitutes a preliminary interpretation only. Non-acute findings felt to be unrelated to the clinical presentation may not be discussed in this report. The study will be interpreted and a final report will be generated by the local Radiologist the following shift. To reach the hospital radiology department call [phone]. If a discrepancy is found between the preliminary and final interpretations of this study, please notify us via our Client Portal at [email or web address].You can also fax this report with a description of the discrepancy, or include the final report, to our daytime fax number [phone].If faxing, please indicate the severity of discrepancy using one of the following categories: [ ] 1 - Agree/Informational [ ] 2 - Unlikely to Affect Management [ ] 3 - Possible Eventual Change of Management [ ] 4 - Probable Immediate Change of Management For all other patient related information, please fax us at [phone]. [id number] [facility] Patient: AMRIK PACHECO (Male) : 88 Status: ER Date: 02/20/21 23:18 Room #: History: LIGHTHEADEDNESS ELEVATED LFT'S APPENDIX PRESENT OPTIRAY 320 93ML EK/MALICK Slices: 842 Priors: Tech: Daniel Chin @ [id number] Exams: CT ABDOMEN & PELVIS With Contrast Contrast: IV Amt: 93ML Accession Numbers: [id number] Referring Physician: REFERRED SELF Preliminary Findings Only See Final Report For Complete Findings CT ABDOMEN & PELVIS With Contrast: No bowel obstruction or ileus. Abundant stool throughout the colon. No evidence for appendicitis. No evidence for diverticulitis. No free fluid. Liver is a large 28 x 2 cm in length a diffusely hypodense/fatty. Probable gallbladder sludge. No calcified gallstones. No biliary ductal dilation. Pancreas is unremarkable. Spleen is enlarged 14.8 cm length.. No obstructive uropathy. Kidneys are unremarkable. Urinary bladder is partially contracted with nonspecific wall thickening. Radiologist: Filiberto Spencer M.D. Study ready at 23:38 and initial results transmitted at 00:02 *This report constitutes a preliminary interpretation only. Non-acute findings felt to be unrelated to the clinical presentation may not be discussed in this report. The study will be interpreted and a final report will be generated by the local Radiologist the following shift. To reach the hospital radiology department call [phone]. If a discrepancy is found between the preliminary and final interpretations of this study, please notify us via our Client Portal at [email or web address].You can also fax this report with a description of the discrepancy, or include the final report, to our daytime fax number [phone].If faxing, please indicate the severity of discrepancy using one of the following categories: [ ] 1 - Agree/Informational [ ] 2 - Unlikely to Affect Management [ ] 3 - Possible Eventual Change of Management [ ] 4 - Probable Immediate Change of Management For all other patient related information, please fax us at [phone]. [id number] Code Status & VTE Plan Code Status Full code VTE Prophylaxis Plan VTE Prophylaxis will be ordered: Yes PG Care Time/CCT Total # of Minutes Spent Total Time Spent with Patient: Total time spent is greater than 50% in coordination of care (as documented) at patient's floor/unit and/or counseling patient: Coding Level of Care Code 96163 Initial Inpt Care Lvl 3 Diagnoses Hepatosplenomegaly R16.2 Alcoholism F10.20 Anemia, macrocytic D53.9 IV drug abuse F19.10 Depression F32.9 GERD (gastroesophageal reflux disease) K21.9 Neuropathy, peripheral G62.9 Confusion R41.0 Weakness R53.1 Elevated bilirubin R17 Coagulopathy D68.9 Acute on chronic alcoholic liver disease K70.9
[2021-02-21] MEDS ORDERED: ATIVAN IV ALCOHOL WITHDRAWL IV PRN (01:19)
[2021-02-21] MEDS ORDERED: LORazepam 2 MG/4 ML VIAL IV PRN ×2 (01:19→12:17)
[2021-02-21] MEDS ORDERED: LORazepam 1 MG/2 ML VIAL IV PRN ×2 (01:19→12:17)
[2021-02-21] MEDS ORDERED: LORazepam 3 MG/6 ML VIAL IV PRN (01:19)
[2021-02-21 01:48] LABS: Appearance Urine Clear (Clear); Bacteria Urine Automated 4+ (Negative); Blood Urine Negative (Negative); Color Urine Dark Yellow; Glucose Urine UA Negative (Negative); Ketones Urine Negative (Negative); Leukocyte Esterase Urine Trace (Negative); Nitrite Urine Positive (Negative); Protein Urine Trace (Negative); RBC Urine Automated 0-4 /hpf (0-4); Specific Gravity Urine > 1.045 (1.000-1.030); Urobilinogen Urine Negative (Negative); pH Urine 6.5 (4.5-7.5)
[2021-02-21 01:53] LABS: Bilirubin Urine 3+ (Negative)
[2021-02-21 02:14] LABS: Cast Urine Automated 0 /lpf (0-5)
[2021-02-21] MEDS ORDERED: LORazepam 1 MG TAB PO PRN (02:47)
[2021-02-21] MEDS ORDERED: ONDANSETRON INJ 2 MG/ML 2 ML VIAL IV PRN (02:47)
[2021-02-21] MEDS: NSS + 20MEQ KCL 20 MEQ/1,000 ML BAG IV SCH ×2 (03:38→15:43)
[2021-02-21 06:12] LABS: Alanine Aminotransferase 57 U/L (12-78); Albumin Globulin Ratio 0.3 (0.9-2); Albumin Level 1.6 gm/dl (3.4-5.0); Alkaline Phosphatase 435 U/L (45-117); Aspartate Aminotransferase 453 U/L (15-37); Blood Urea Nitrogen 2 mg/dl (7-18); Calcium 7.5 mg/dl (8.5-10.1); Carbon Dioxide 29 mmol/L (21-32); Chloride 101 mmol/L (98-107); Creatinine Clr Calc Pharmacy 188.9 ml/min; Est GFR (African American) > 150.0 ml/min; Est GFR (Non-African American) 144.4 ml/min; Globulin 5.1 gm/dl (2.5-4.0); Glucose 79 mg/dl (70-99); Potassium 3.2 mmol/L (3.5-5.1); Sodium 136 mmol/L (136-145); Total Protein 6.7 gm/dl (6.4-8.2)
--- NOTE | 2021-02-21 07:15 | CT Scan Report ---
CT head/brain wo con CLINICAL HISTORY: 30 years-old Male with lightheaded, confused. Acutely altered mental status with c onfusion TECHNIQUE: Multiple axial CT images of the head were obtained without contrast. A dose lowering tech nique was utilized adhering to the principles of ALARA. COMPARISON: Head CT 07/07/2020 FINDINGS: No acute intracranial hemorrhage, midline shift, intracranial mass, hydrocephalus, territorial ischem ia or abnormal extra-axial collection. The calvarium is intact. Chronic appearing nasal bone fracture. The paranasal sinuses, mastoid air ce lls, and middle ear cavities are clear. IMPRESSION: No acute intracranial abnormality. ACT 112: Negative or not required by law. The above report was generated using voice recognition software. It may contain grammatical, syntax o r spelling errors. Electronically signed by: Cristóbal Lion M.D. 02/21/2021 7:14 AM
[2021-02-21 07:32] LABS: Hematocrit (blood only) 20.8 % (42-52); Hemoglobin 6.6 g/dL (14.0-18.0); Mean Corpuscular Hemoglobin 31.9 pg (25-34); Mean Corpuscular Hgb Conc 31.7 g/dL (32-36); Mean Corpuscular Volume 100.5 fL (80-100); RDW Coefficient of Variation 15.4 % (11.5-14.5); RDW Standard Deviation 56.4 fL (36.4-46.3); Red Blood Count 2.07 M/uL (4.7-6.1); White Blood Count 1.94 K/uL (4.8-10.8)
[2021-02-21] MEDS ORDERED: OCTREOTIDE ACETATE 50 MCG in SYRINGE 9.5 ML IV STA (07:37)
[2021-02-21] MEDS ORDERED: SODIUM CHLORIDE 0.9% 250 ML IV PRN ×3 (07:51→23:59)
[2021-02-21 07:54] LABS: Basophilic Stippling 1+; Basophils # (auto) 0.01 K/uL (0-0.2); Basophils % (auto) 0.5 %; Lymphocytes # (auto) 0.63 K/uL (1.2-3.4); Lymphocytes % (auto) 32.5 %; Mean Platelet Volume 10.1 fL (7.4-10.4); Monocytes # (auto) 0.18 K/uL (0.11-0.59); Monocytes % (auto) 9.3 %; Neutrophils # (auto) 1.12 K/uL (1.4-6.5); Neutrophils % (auto) 57.7 %; Platelet Count 45 K/uL (130-400); Platelet Estimate Decreased (Normal); Stomatocytes 1+
[2021-02-21] MEDS: POTASSIUM CHLORIDE / WTR 10 MEQ/100 ML PLCT IV SCH ×4 (08:12→12:21)
[2021-02-21] MEDS: cefTRIAXone SODIUM 1,000 MG in DEXTROSE 5% 50 ML IV SCH (08:12)
[2021-02-21] MEDS: OCTREOTIDE ACETATE 500 MCG in 0.9 % SODIUM CHLORIDE 100 ML IV SCH ×2 (08:12→16:44)
[2021-02-21] MEDS: THIAMINE HCL 100 MG TAB PO SCH (08:13)
[2021-02-21] MEDS: FOLIC ACID 1 MG TAB PO SCH (08:13)
[2021-02-21] MEDS: VITAMIN B COMPLEX TAB PO SCH (08:14)
[2021-02-21] MEDS: MULTIVITAMIN TAB PO SCH (08:14)
--- NOTE | 2021-02-21 08:17 | XRay Report ---
XR chest 1V portable HISTORY: weakness COMPARISON: Chest CTA 07/07/2020. FINDINGS: The lungs are clear. Cardiac silhouette is normal in size. No pleural effusions. No pneumot horax. IMPRESSION: No acute process. ACT 112: Negative or not required by law. Electronically signed by: New Yepez M.D. 02/21/2021 8:16 AM
--- NOTE | 2021-02-21 08:38 | CT Scan Report ---
ABDOMEN AND PELVIS CT WITH IV CONTRAST CT DOSE: 954.52 mGy.cm HISTORY: Acutely elevated LFTs elevated LFT/bili TECHNIQUE: Multiaxial CT images of the abdomen and pelvis were performed following the IV administrat ion of 93 cc of Optiray, A dose lowering technique was utilized adhering to the principles of ALARA. COMPARISON STUDY: MRCP 02/21/2021, CT abdomen pelvis 07/07/2020 FINDINGS: The imaged inferior cardiac chambers are unremarkable. The lung bases appear clear. No pneumatosis or pneumoperitoneum. The spleen is enlarged measuring up to 17.5 cm in length. Severe hepatic steatosis with hepatomegaly. No evidence of cirrhosis or hepatic mass. Patency of the hepatic and portal veins . Hyperattenuating material within the gallbladder lumen is suggestive of sludge. There is partial di stention of the gallbladder with mild wall thickening and equivocal pericholecystic stranding. No carlita iary ductal dilation. Unremarkable kidneys. No hydronephrosis. Urinary bladder wall thickening with partial distention. Unr emarkable prostate. Mild atherosclerosis of the aorta without aneurysm. No adenopathy. Unremarkable I VC. No bowel obstruction or bowel wall thickening. There is mild fecal retention. Noninflamed appendi x. Scattered small bowel air-fluid levels. Unremarkable soft tissues. No acute fracture. IMPRESSION: 1. Partial distention of the gallbladder is noted with suggested gallbladder sludge and mild wall thi ckening with equivocal pericholecystic stranding. Findings should be correlated with clinical present ation to exclude acute cholecystitis. 2. No biliary ductal dilation. 3. Hepatosplenomegaly with severe hepatic steatosis. 4. No bowel obstruction or bowel wall thickening. Normal appendix. ACT 112: Negative or not required by law. The above report was generated using voice recognition software. It may contain grammatical, syntax o r spelling errors. Electronically signed by: Cristóbal Lion M.D. 02/21/2021 8:36 AM
[2021-02-21] MEDS ORDERED: NON-FORMULARY MEDICATION (Potassium Gluconate 595 mg (99 mg) Tablet) PO SCH (09:00)
[2021-02-21] MEDS ORDERED: PANTOprazole 40 MG TAB PO SCH (09:00)
[2021-02-21] MEDS ORDERED: FOLIC ACID 1 MG TAB PO SCH (09:00)
[2021-02-21] MEDS ORDERED: GABAPENTIN 800 MG TAB PO SCH (09:00)
[2021-02-21] MEDS ORDERED: THIAMINE HCL 100 MG TAB PO SCH (09:00)
--- NOTE | 2021-02-21 09:04 | Critical Care Consultation ---
Date of Consultation February 21, 2021 Assessment & Plan (1) Acute on chronic alcoholic liver disease: Reason Critically Ill: 30 year old male w/ PMHx of alcohol use disorder, current IVDU, and hx of esophageal varices, and hx of pos blood cultures who presents w/ intermittent AMS and jaundice secondary to alcohol use disorder. He is transferred to ICU because of Hb drop from 9.5 to 6.6 in 10 hours overnight, concerning for acute blood loss anemia. Current mentation is appropriate. Neuro - [facility] ICU: negative Head CT: no acute process. tobacco use disorder: will order nicotine patch if develops withdrawal symptoms. Cardiac - tachycardia, w/ BPs 90s/60. MAP appropriate, but will monitor - likely from acute blood loss anemia w/ some element etoh withdrawal. ecg sinus tach w/o ischemic changes. continue telemetry. Respiratory - Satting 91-92 on RA, denies resp complaint. Titrate >90%. Incentive spirometry. Repeated cxr because of physical exam, result neg. GI - NPO acute alcoholic hepatitis Isolated AST elevation, consistent w/ etoh pattern abd us ruq, canceled because has MRCP ordered. CT abd/pelv: CT abd pelvis: parital distention of gallbladder w/ sludge and mild wall thickening w/ equivocal pericholecystic stranding. Hepatosplenomegaly w/ severe hepatic steatosis. acute blood loss anemia 9.5(9pm)->6.6 (7AM)->7.3(1:30PM, s/p 1u platelets and pRBC). W/ hx of esophageal varices, concerning for UGIB. Considered lab error because multiple abrupt declines in CBC. However, less likely because Hb 6.6->7.3 after 1 unit platelets and 1 unit of PRBCs. S/P 1 u platelets and 1 uPRBC this AM Will check CBC at 1:30PM and q4h thereafter. Will assess whether another unit of PRBC indicated and will continue discussion w/ GI to determine if EGD indicated. GI consulted. Started on empiric Rocephin and octreotide for possible bleeding varices. RENAL/LYTES - Check CMP, Mg, Phos Replace lytes as needed. metabolic acidosis (presumed), improving w/ positive lactate. less likely alcoholic ketoacidosis w/ UA neg for ketones No blood gas obtained. Would presume resp compensation. No tachypnea noted. anion gap since closed - No concerns at this time. Voiding. ENDO - No hx of DM or thyroid disease. TSH 4.53H, w/ normal fT4 1.1. May be transient subclinical hypothyroidism 2/2 illness; no treatment indicated. Previous TSH in 06/2020 wnl. HEME - hold chemo ppx anemia, thrombocytopenia, leukopenia Hb 9.5 dropped to 6.6 overnight (10 hours). ordered peripheral smear. Last smear in 07/2020, did not suggest myelodysplasia. Considered lab error as above. Follow CBC as above. See workup below. alcohol use disorder 5mg iv vitamin k. 500 mg thiamine today, 200 mg daily after. Currently on AWSS IV ativan protocol. Changed AWSS score of 6,7->1 mg IV ativan to score of 5-7. After off NPO, will switch to Librium taper (dose adjusted for liver disease). Of note, patient takes ~0.5mg of Klonopin daily at home PRN for anxiety. Ordered serum tylenol ck lactate peripheral smear, retic count. cbc q4h x2. UDS, folate, cmp, mg, phos. ID - blood and urine cultures pending, follow. Afebrile. UA w/ nitrite and 4+ bacteria. Deferred repeating UA because started on abx. LINES/IV ACCESS -PIVs intact. DVT PROPHYLAXIS - SCDs only code: full dispo: ICU (2) Acute anemia: (3) Alcoholism: (4) GERD (gastroesophageal reflux disease): (5) Depression: (6) IV drug abuse: (7) Alcohol abuse: (8) Tachycardia: (9) Lactic acidosis: (10) Leukopenia: (11) Thrombocytopenia: (12) Tobacco use disorder: (13) Hepatosplenomegaly: (14) Coagulopathy: (15) Weakness: Supervising Physician Co-Signing Physician Notes Dr. Venegas was resident physician during care of patient. I separately evaluated patient for stover portions of the history and the exam. I was present during the critical portion of medical decision making, and I discussed the case with the resident. I generally agree with the findings and plan. Check Tylenol level, add empiric Mucomyst this appears to be acute on chronic liver failure secondary to alcohol. Right upper quadrant ultrasound exclude cholelithiasis equivocal findings on CT scan. Acute hepatitis panel pending, GI consult pending. Stool guaiac pending check H&H x3. On empiric Rocephin for possible GI bleeding as source. Check reticulocyte count, add thiamine daily elevated lactic acid is most likely secondary to hepatic insufficiency receiving 1 unit packed red blood cells 1 unit platelets keep blood product on hold, 5 mg IV vitamin K x1, empiric Librium for empiric medication for alcohol withdraw drinks 6-8 shots of whiskey daily. SCDs for physical prophylaxis no chemical prophylaxis at this time as it is contraindicated. I have personally spent 45 minutes of critical care time in the direct management of this patient. This is a life/limb threatening event. This includes time spent evaluating patient, direct bedside care, chart review, placing orders, interpretation of diagnostic studies, discussion with consultants, patient, and/or family members regarding treatment decisions, as well as other required patient management activities. This time is exclusive of all separately billable procedures, and teaching time and separate from and in addition to any other critical care service time. History of Present Illness Reason for Consultation: acute blood loss anemia, hx of varices Attending Physician: Tian Islas MD History of Present Illness Mika Mckeon is a 30 year old male w/ PMHx of etoh use disorder, alcoholic liver disease and coagulopathy, current IVDU, anxiety/depression, neuropathy, GERD, hx of esophageal varices, and hx of pos blood cultures who presents w/ generalized weakness and mild intermittent confusion x 1 week. He presented to [facility] yesterday evening for the above and jaundice. His main symptoms are moderate generalized weakness, imbalance-type dizziness, and fatigue. He drinks 6-7 shots of Whiskey daily, last drink (3+ shots) at 6:30 pm on 02/20/21. He has been to inpatient rehab for etoh in past. Patient denies hx of seizures or hallucinations and states his usualy withdrawal symptoms are shakiness. Regarding his hx of varices, he denies prior GI bleeds. He denies hx of chronic liver disease. Hx neuropathy in legs. Denies hx DM. -f/c/diaporesis, -n/v, cp, sob, carbajal, blurry vision, urinary sxs, itching, joint pain, rash, covid sxs. At admission, his etoh lvl was 293.9 . S/P LR bolus in ED. He was started on octreotide and Rocephin by hospitalist team this AM prior to ICU transfer. tobacco: Chews 1 can chewing tobacco daily, smokes rarely. IVDU: Subosxone, dissolves and injects 2 mg of crushed pill. 5+ year hx of use. Uses own needles. Denies other IVDU. social: Lives w/ mother and brother. Allergies Allergy/AdvReac Type Severity Reaction Status Date / Time No Known Allergies Allergy Verified 02/20/21 21:05 Home Medications Medication Instructions Recorded Confirmed Type multivitamin 1 tab PO DAILY #90 tab 07/09/20 02/20/21 Rx thiamine HCl (vitamin B1) 100 mg 100 mg PO DAILY #90 tab 07/09/20 02/20/21 Rx tablet vitamin B complex 1 cap PO DAILY 08/23/20 02/20/21 History clonazepam 0.5 mg tablet 0.5 mg PO DAILY PRN 08/31/20 02/20/21 History folic acid 1 mg tablet 1 mg PO DAILY #90 tab 09/20/20 02/20/21 Rx omeprazole 40 mg capsule,delayed 40 mg PO DAILY #30 cap 09/20/20 02/20/21 Rx release sucralfate 1 gram tablet 1 g PO QID PRN tab 09/20/20 02/20/21 History gabapentin 800 mg tablet 800 mg PO TID #90 tab 11/22/20 02/20/21 Rx potassium gluconate 595 mg (99 mg) 595 mg PO DAILY 02/20/21 02/20/21 History tablet Patient History Medical History (Updated 02/21/21 @ 13:52 by Hayder Venegas MD) Alcohol abuse Depression GERD (gastroesophageal reflux disease) IV drug abuse Thrombocytopenia Surgical History History of esophagogastroduodenoscopy (EGD) Family History Grandfather Heart disease Diabetes Stroke Mother Diabetes Social History Smoking Status: Current every day smoker Tobacco Type: Cigarettes packs per day: 0.25; Cigarettes Per Day: 3; Second Hand Exposure: Yes; Do You Dip or Chew Tobacco: Yes; Hx Alcohol Use: Yes Alcohol type: hard liquor Alcohol Intake Frequency: 4 or More x per/Week Alcohol Intake Frequency Comment: drinks wiskey everyday Hx Substance Use: Yes Non-Prescribed Medications: Crack / Cocaine, IV Drugs and Marijuana Non-Prescribed Medications Comment: suboxone Last Used Substance: Unknown Last Used Substance Other:: 08/30/20 Substance Use Type Other:: subutex Preferred Language: Kittitian Communication Ability: Effective Visual Impairment: No Limitations Hearing Ability: Normal Snow Ranger Required: No Beliefs That Will Affect Care: None marital status: Single Current Living Situation: Parent and Family Current Living Situation Comment: brother and mother current occupational status: employed 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 He had intermittent palpitations (skipped beat) earlier this admission, but none currently. Respiratory: Denies shortness of breath Gastrointestinal: Denies nausea, vomiting, constipation, diarrhea. Denies abd pain when abd is not palpated. Genitourinary: Denies urinary symptoms including dysuria Musculoskeletal: Denies weakness, muscle aches/pain, joint aches/pain Neurological: Denies headache, focal weakness. + chronic intermittent paresthe shakila at feet, not new Psych: + anxiety Physical Exam Physical Exam: General: A&Ox4. NAD. Cooperative. HEENT: Atraumatic, normocephalic. EOMI. PERRL. MMM. + scleral icterus. Neck is supple. No LAD. Pulm: CTAB. -wheezes, -rales, -rhonchi. No respiratory distress. Slightly decreased air entry at right lung base. Cardiac: Tachycardic rate regular rhythm, -mrg. Radial pulses intact and symmetrical. Abdominal: Mild TTP at RUQ and bilateral lower, worse at RLQ. Mild voluntary guarding at RUQ, no rigidity. Obese abdomen. Integ: No jaundice noted. PIVs appropriate. Neuro: Moderate tremor of hands. Moving all extremities. Psych: Denies suicidal or homicidal ideation. Results & Data Results & Data ([facility]) Vital Signs (Past 12 Hours) Vital Signs Temp Pulse Pulse Resp BP BP Pulse Ox 02/21/21 06:09 112 H 12 91/69 L 92 02/21/21 02:47 36.6 C 100 H 16 106/64 92 02/21/21 02:42 110 H 02/21/21 02:34 115 H 95 02/21/21 02:00 113 H 15 108/60 93 02/21/21 01:58 36.8 C 108 H 16 107/69 93 02/21/21 01:30 124 H 18 107/69 95 02/21/21 01:00 120 H 17 115/72 97 02/21/21 00:30 111 H 13 119/75 95 02/21/21 00:00 118 H 14 120/76 96 02/20/21 23:30 113 H 10 L 116/78 94 02/20/21 23:00 119/80 02/20/21 22:30 120 H 15 118/79 96 02/20/21 22:00 112 H 14 112/72 95 02/20/21 21:30 123 H 12 103/71 95 02/20/21 21:19 95 Laboratory Results wbc 5.88->1.94. Has had hx of mild leukopenia. Hb 9.5->6.6. Hct 30.0->20.8. MCV 101.4->100.5. Plts 104->45. HypoK 3.2, repleting. +anion gap of 13 at admission, since closed. may also be contributing to hypoxia. Lactate 4.3, 4 at admission, will follow. Corrected Ca 9.4 . elevated t bili 8.7->7, d bili 5.8. AST 583->453. Alk phos 557->435. Ammonia wnl 13.2. Neg top x1. CRP 4.82H. Alb 2.0->1.6. B12 1592H. Procalc 1.24H. TSH 4.53H. fT4 1.1 wnl. UA w/ trace protein, pos nitrite, 3+ bili, trace leuks, 10-30 wbc, 10-20 epithelial cells, 4+ bacteria. Etoh 293.9 at admission. Covid neg. Hepatits panel pending. Denies having had covid immunization. 02/21/21 06:55 02/21/21 05:25 Diagnostic Findings Chest X-Ray 02/20/21 21:19 XR chest 1V portable HISTORY: weakness COMPARISON: Chest CTA 07/07/2020. FINDINGS: The lungs are clear. Cardiac silhouette is normal in size. No pleural effusions. No pneumothorax. IMPRESSION: No acute process. ACT 112: Negative or not required by law. Electronically signed by: New Yepez M.D. 02/21/2021 8:16 AM Abdomen/Pelvis CT 02/20/21 22:[address] WITH IV CONTRAST CT DOSE: 954.52 mGy.cm HISTORY: Acutely elevated LFTs elevated LFT/bili TECHNIQUE: Multiaxial CT images of the abdomen and pelvis were performed following the IV administration of 93 cc of Optiray, A dose lowering technique was utilized adhering to the principles of ALARA. COMPARISON STUDY: MRCP 02/21/2021, CT abdomen pelvis 07/07/2020 FINDINGS: The imaged inferior cardiac chambers are unremarkable. The lung bases appear clear. No pneumatosis or pneumoperitoneum. The spleen is enlarged measuring up to 17.5 cm in length. Severe hepatic steatosis with hepatomegaly. No evidence of cirrhosis or hepatic mass. Patency of the hepatic and portal veins. Hyperattenuating material within the gallbladder lumen is suggestive of sludge. There is partial distention of the gallbladder with mild wall thickening and equivocal pericholecystic stranding. No biliary ductal dilation. Unremarkable kidneys. No hydronephrosis. Urinary bladder wall thickening with partial distention. Unremarkable prostate. Mild atherosclerosis of the aorta wi thout aneurysm. No adenopathy. Unremarkable IVC. No bowel obstruction or bowel wall thickening. There is mild fecal retention. Noninflamed appendix. Scattered small bowel air-fluid levels. Unremarkable soft tissues. No acute fracture. IMPRESSION: 1. Partial distention of the gallbladder is noted with suggested gallbladder sludge and mild wall thickening with equivocal pericholecystic stranding. Findings should be correlated with clinical presentation to exclude acute cholecystitis. 2. No biliary ductal dilation. 3. Hepatosplenomegaly with severe hepatic steatosis. 4. No bowel obstruction or bowel wall thickening. Normal appendix. ACT 112: Negative or not required by law. The above report was generated using voice recognition software. It may contain grammatical, syntax or spelling errors. Electronically signed by: Cristóbal Lion M.D. 02/21/2021 8:[address] 02/20/21 22:55 CT head/brain wo con CLINICAL HISTORY: 30 years-old Male with lightheaded, confused. Acutely altered mental status with confusion TECHNIQUE: Multiple axial CT images of the head were obtained without contrast. A dose lowering technique was utilized adhering to the principles of ALARA. COMPARISON: Head CT 07/07/2020 FINDINGS: No acute intracranial hemorrhage, midline shift, intracranial mass, hydrocephalus, territorial ischemia or abnormal extra-axial collection. The calvarium is intact. Chronic appearing nasal bone fracture. The paranasal sinuses, mastoid air cells, and middle ear cavities are clear. IMPRESSION: No acute intracranial abnormality. ACT 112: Negative or not required by law. The above report was generated using voice recognition software. It may contain grammatical, syntax or spelling errors. Electronically signed by: Cristóbal Lion M.D. 02/21/2021 7:14 AM Chest X-Ray 02/21/21 09:40 XR chest 1V portable HISTORY: 30 years-old Male low sats. decreased breath sounds RLQ acute hypoxia COMPARISON: Chest radiograph 02/20/2021 TECHNIQUE: Portable AP view of the chest FINDINGS: Cardiac silhouette is upper limits of normal in size. No pneumothorax, pleural effusion, airspace consolidation or overt pulmonary edema. Mild interstitial coarsening of the lung bases is likely secondary to patient body habitus. No acute fracture. IMPRESSION: No acute process. ACT 112: Negative or not required by law. The above report was generated using voice recognition software. It may contain grammatical, syntax or spelling errors. Electronically signed by: Cristóbal Lion M.D. 02/21/2021 10:30 AM Resident Activity Tracking Resident Involvement: Resident Care Provided Care Provided: Adult Hospital Medicine
--- NOTE | 2021-02-21 10:31 | XRay Report ---
XR chest 1V portable HISTORY: 30 years-old Male low sats. decreased breath sounds RLQ acute hypoxia COMPARISON: Chest radiograph 02/20/2021 TECHNIQUE: Portable AP view of the chest FINDINGS: Cardiac silhouette is upper limits of normal in size. No pneumothorax, pleural effusion, airspace con solidation or overt pulmonary edema. Mild interstitial coarsening of the lung bases is likely seconda ry to patient body habitus. No acute fracture. IMPRESSION: No acute process. ACT 112: Negative or not required by law. The above report was generated using voice recognition software. It may contain grammatical, syntax o r spelling errors. Electronically signed by: Cristóbal Lion M.D. 02/21/2021 10:30 AM
[2021-02-21 10:34] LABS: Hepatitis B Surf Ag Rflx Conf Neg (Neg)
--- NOTE | 2021-02-21 10:35 | Billing Data ---
Date of Service February 21, 2021 Coding Level of Care Code Critical Care 1st - mins
[2021-02-21] MEDS ORDERED: THIAMINE HCL IV SCH (10:45)
[2021-02-21] MEDS ORDERED: SODIUM CHLORIDE 0.9% IV STA (10:48)
[2021-02-21] MEDS ORDERED: THIAMINE HCL IV STA (10:48)
[2021-02-21] MEDS ORDERED: PHYTONADIONE 5 MG in SODIUM CHLORIDE 0.9% 50 ML IV ONE (11:00)
[2021-02-21 11:03] LABS: Hepatitis C IgG 13Yrs+Old_Rflx Neg (Neg)
--- NOTE | 2021-02-21 11:54 | Gastrointestinal Consultation ---
Date of Consultation February 21, 2021 Assessment & Plan (1) Alcoholic hepatitis: DF = 13. Acute pancytopenia/anemia ? secondary to hepatitis, infection or recent IV drug use. There is no hx of cirrhosis or suggestion of cirrhosis on imaging though he has had small esophageal varices in the past (on EGD). Recommend against steroids for tx of ETOH hepatitis as has low DF. Not a candidate for liver transplant eval at this time because continuing with substance abuse. Appreciate primary hospitalists management of fluid/blood/electrolyte replacements and work up for infection. (2) Alcohol abuse: Needs complete permanent abstinence from alcohol and IV drug use. Discussed with pt who says, "I just need to decide." Supervising Physician Co-Signing Physician Notes Attending attestation I have seen, examined this patient, and agree with the findings and above by our mid-level provider LORENZO Mai, with the following additions: Admitted with what appears to be decompensated alcoholic liver disease. Possibly clinical cirrhosis but but imaging does not show that, likely has alcoholic hepatitis. However his discriminant function is less than 32 at which time steroids has been shown to provide no benefit. He also has concern of a urinary tract infection which would be contraindicated for steroids in that fashion. Tachycardic likely from withdrawal symptoms and volume, his labs have shown a pancytopenia that is developed since admission. He specifically has no evidence of hematemesis, hematochezia and/or melena. His BUN is normal none of which would suggest an acute GI bleed. Okay with IV octreotide and antibiotics as being prescribed. I reviewed his pictures from EGD from earlier this year from Dr. Morgan, there is no suggestion of varices on that examination. There is also no evidence of collaterals on CT scan here or at [facility], so I am unsure if he actually has varices or not. He is not confused, lactic acid is i mproved, unsure of why he has pancytopenia but certainly viral infection could lead to this. And I would suggest serologies to be sent for HSV, EBV, CMV, will likely require inpatient alcohol rehab. Also concern of infection and/or consumptive process as he has been injecting crushed up tablets as well. May need antibiotic coverage broadened. Call with questions History of Present Illness Reason for Consultation: jaundice, weakness, alcohol abuse Requesting Physician: Dr. Venegas, Dr. Islas Attending Physician: Tian Islas MD History of Present Illness Mr. Amrik Mckeon is a 30 yr old male pt of Dr. Filiberto Burt with a hx of anxiety, ETOH abuse, most recently drinking 1/3 of a half gallon of whiskey per day and most recent drink was yesterday morning. He also reports taking Suboxone pills, crushing them and self administering IV. He tells me that he has a long hx of increased alcohol intake and that he has never had a period of sobriety. He has has bilateral neuropathy of the legs, w/o obvious cause, increasing fatigue and weakness and has had intermittent nausea/vomiting, most recently a few days ago. He has had some vague abdominal pain but denies a pattern of post prandial RUQ pain. He denies any gross GI bleeding. He presented to the ED for the lower ext pain and weakness yesterday. On arrival, Hb 9.5-> 6.6 today and he is receiving a unit of blood now. BUN and Cr are normal, lactate is high at 4. CT on arrival with distended gallbladder with sludge. MRCP is arranged - to be completed soon. His DF = 13 (PT 1.4, T Bili 7). He is seen and examined while resting in bed in the ICU. He is awake, alert, oriented and hemodynamically stable though appears jaundiced and chronically ill. EGD in May for nausea/vomiting with small varies, gastritis. Allergies Allergy/AdvReac Type Severity Reaction Status Date / Time No Known Allergies Allergy Verified 02/20/21 21:05 Home Medications Medication Instructions Recorded Confirmed Type multivitamin 1 tab PO DAILY #90 tab 07/09/20 02/20/21 Rx thiamine HCl (vitamin B1) 100 mg 100 mg PO DAILY #90 tab 07/09/20 02/20/21 Rx tablet vitamin B complex 1 cap PO DAILY 08/23/20 02/20/21 History clonazepam 0.5 mg tablet 0.5 mg PO DAILY PRN 08/31/20 02/20/21 History folic acid 1 mg tablet 1 mg PO DAILY #90 tab 09/20/20 02/20/21 Rx omeprazole 40 mg capsule,delayed 40 mg PO DAILY #30 cap 09/20/20 02/20/21 Rx release sucralfate 1 gram tablet 1 g PO QID PRN tab 09/20/20 02/20/21 History gabapentin 800 mg tablet 800 mg PO TID #90 tab 11/22/20 02/20/21 Rx potassium gluconate 595 mg (99 mg) 595 mg PO DAILY 02/20/21 02/20/21 History tablet Patient History Medical History (Updated 02/21/21 @ 13:52 by Hayder Vneegas MD) Alcohol abuse Depression GERD (gastroesophageal reflux disease) IV drug abuse Thrombocytopenia Surgical History History of esophagogastroduodenoscopy (EGD) Family History Grandfather Heart disease Diabetes Stroke Mother Diabetes Social History Smoking Status: Current every day smoker Tobacco Type: Cigarettes packs per day: 0.25; Cigarettes Per Day: 3; Second Hand Exposure: Yes; Do You Dip or Chew Tobacco: Yes; Hx Alcohol Use: Yes Alcohol type: hard liquor Alcohol Intake Frequency: 4 or More x per/Week Alcohol Intake Frequency Comment: drinks wiskey everyday Hx Substance Use: Yes Non-Prescribed Medications: Crack / Cocaine, IV Drugs and Marijuana Non-Prescribed Medications Comment: suboxone Last Used Substance: Unknown Last Used Substance Other:: 08/30/20 Substance Use Type Other:: subutex Preferred Language: Divehi Communication Ability: Effective Visual Impairment: No Limitations Hearing Ability: Normal [employer] Consultant Required: No Beliefs That Will Affect Care: None marital status: Single Current Living Situation: Parent and Family Current Living Situation Comment: brother and mother current occupational status: employed 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 [employer] Other Information That Helps Us Care for You: Yes Feels Safe at Home: Yes Safety Concerns: Feels Safe At This Time Childhood Exposure to Second-Hand Smoke: No Dental Care, Regularly: No Seatbelt Use: always Sunscreen Use: Yes Assistive Devices: None Review of Systems Review of Systems: ROS: Gen: + weakness No fevers, unsure if weight loss Eyes: No eye redness, or pain, no recent vision changes Resp: No SOB, no cough Cardio: No palpitations/irregular beats, no chest pain GI: Per HPI otherwise (-) : + very dark urine Denies pain on urination Skin: + jaundice, itching or new rashes Physical Exam Constitutional: well developed, + ill appearing, + thin and cooperative Respiratory: normal respiratory effort, lungs clear to auscultation Cardiovascular: RRR, no murmur, no edema Gastrointestinal (Abdomen): Inspection/Auscultation: + abdomen distended (mildly, softly) and + hypoactive bowel sounds soft, liver palpable and mildly tender at 2 cm lower than the right costal border. Minimal ascites; Very mild RUQ tenderness Skin: ++ Jaundiced; scar on left clavicular region Neurologic: PERRL, EOMI, accommodation nl, no face palsy, no dysarthria awake; not confused Mild tremor of the hands Psychiatric: A+Ox3, euthymic affect Orientation: alert, oriented x 3 and cooperative Lymphatic: no cervical or axillary lymphadenopathy Results & Data ([facility]) Vital Signs (Past 12 Hours) Vital Signs Temp Pulse Pulse Resp BP BP Pulse Ox 02/21/21 11:15 37.0 C 114 H 100/59 L 92 02/21/21 11:11 37.0 C 116 H 14 101/58 L 92 02/21/21 10:55 36.8 C 113 H 14 92/60 L 92 02/21/21 10:31 36.8 C 111 H 14 100/58 L 92 02/21/21 10:01 36.8 C 109 H 14 99/57 L 92 02/21/21 09:46 36.8 C 110 H 14 101/59 L 92 02/21/21 09:30 37.0 C 108 H 14 130/82 91 02/21/21 06:09 112 H 12 91/69 L 92 02/21/21 02:47 36.6 C 100 H 16 106/64 92 02/21/21 02:42 110 H 02/21/21 02:34 115 H 95 02/21/21 02:00 113 H 15 108/60 93 02/21/21 01:58 36.8 C 108 H 16 107/69 93 02/21/21 01:30 124 H 18 107/69 95 02/21/21 01:00 120 H 17 115/72 97 02/21/21 00:30 111 H 13 119/75 95 02/21/21 00:00 118 H 14 120/76 96 Laboratory Results WBC 1.94, Hb 6.6, Hct 20.8, plts 45, Na 136, K 3.2, Bl 101, Co2 29, BUN 2, Cr 0.5, glucose, T bili 7.0, DB 5.8, AST 454, ALT 57, Alk Phos 435. Hepatitis B/C (-) thus far and COVID (-). Diagnostic Findings CTAP with IV contrast on 02/20/21: 1. Partial distention of the gallbladder is noted with suggested gallbladder sludge and mild wall thickening with equivocal pericholecystic stranding. Findings should be correlated with clinical presentation to exclude acute cholecystitis. 2. No biliary ductal dilation. 3. Hepatosplenomegaly with severe hepatic steatosis. 4. No bowel obstruction or bowel wall thickening. Normal appendix.
--- NOTE | 2021-02-21 13:13 | Hospitalist Progress Note ---
Date of Service February 21, 2021 Assessment & Plan (1) Acute on chronic alcoholic liver disease: Plan: The patient is a 30-year-old male with a past medical history of alcohol abuse, alcoholism, h/o fungemia, IV drug abuse, esophageal varices, peripheral neuropathy, folate deficiency, GERD and depression. He was admitted to [facility] on 02/20 for acute on chronic liver disease. He was transferred to the ICU on 02/21 - care per ICU. Acute on Chronic Alcoholic Liver Disease Significant alcohol abuse, ALT 583 and TBili 8.7 on admission --> alcoholic hepatitis. Gallbladder pathology per CT A/P (gallbladder sludge) is a chronic finding and patient does not have symptoms of cholecystitis. - AST downtrending 583 --> 453, TBili downtrending 8.7 --> 7.0 - Discriminant score 13.4 today - good prognosis - GI consulted - appreciate recs - no steroids for now Acute on Chronic Macrocytic Anemia Chronic anemia likely due to alcohol abuse. Acute exacerbation due to possible upper GI bleed, as the patient has severe alcoholic hepatic steatosis and history of esophageal varices per previous EGD. FOBT pending. - 1 unit pRBCs infusing; 2 units on hold - continue IVFs with NSS +20mEq KCl @100cc/hr - continue folate/vitamin B12 - H/H checks Q6H x3 ordered - pending - GI consulted as stated above - will hold on EGD for now - continue Protonix 80mg IV BID and Octreotide 50mcg/hr - continue Ceftriaxone 1g IV Q24H (day 1) for GI ppx as well as UTI (see below) Severe Alcohol Use Disorder - continue AWSS protocol with PRN Ativan - consider starting Librium taper given severe alcohol abuse - continue high-dose Thiamine and folate Urinary Tract Infection Urinary symptoms for several days, dirty UA with positive nitrites, blood/urine cultures pending. With lactate 4.0, procalcitonin 1.24, CRP 4.82. - continue CTX as stated above - follow urine/blood cx FEN/GI: NPO DVT Prophylaxis: hold chemoppx for now given elevated INR and possible GI bleed Code Status: Full code Disposition: ICU (2) Hepatosplenomegaly: (3) Alcohol abuse: (4) Anemia, macrocytic: (5) Neuropathy, peripheral: (6) GERD (gastroesophageal reflux disease): (7) Depression: (8) IV drug abuse: Admission and Anticipated Discharge Date Admission Date: February 20, 2021 Supervising Physician Co-Signing Physician Notes Attending attestation Pt seen and examined in concert with Dr. Bethea. In agreement with the documented findings as noted in the resident documentation with any exceptions or additions as noted here. Resting in bed feeling fatigued with mild decrease in POI without nausea, no complaints of abdominal pain, fullness, bowel changes, KEITH, vision changes, lightheadedness, palpitations, SOB, melena, hematochezia. On examination, S1/S2 nl RRR no MCG. CTAB. Abd NT/ND BS+ve. Significant jaundice and scleral icterus. Acute anemia - ICU consult - initial concern for bleeding varices vs. consumptive pathology vs. other source of bleeding - txf 1U PRBC, plt, consider second unit based on response. Octreotide. GI consultation for ?endoscopy. Else see resident documentation as noted. Subjective Patient became more hypotensive and tachycardic overnight. This morning he remains alert and oriented x3. Denies dizziness/lightheadedness. Denies nausea/vomiting, hematochezia or melena. Reports several days of malodorous urine and increased urinary frequency/urgency. Reports increased bilateral hand tremors - last drink was almost 24 hours ago. Reports drinking 1/6 gallon whiskey per day for "years". Does report history of esophageal varices. Review of Systems Review of Systems: All systems reviewed & are unremarkable except as noted in HPI & below Physical Exam Physical Exam: General: A&Ox3. NAD. Cooperative. HEENT: Atraumatic, normocephalic. Scleral icterus present Pulm: CTAB A&P. -wheezes, -rales, -rhonchi. Symmetrical chest rise. No increase work of breathing. No respiratory distress. Cardiac: RRR, -mrg. Radial pulses intact and symmetrical. Abdominal: soft, non-tender, non-distended, BS x 4 Skin: face/arms jaundiced, skin warm/dry Neuro: bilateral hand tremors, no asterixis Results & Data Results & Data ([facility]) Vital Signs (Past 12 Hours) Vital Signs Temp Pulse Pulse Resp BP BP Pulse Ox 02/21/21 12:29 37.0 C 111 H 14 98/57 L 92 02/21/21 12:01 114 H 14 93/60 L 91 02/21/21 11:40 37.0 C 115 H 14 100/57 L 92 02/21/21 11:15 37.0 C 114 H 100/59 L 92 02/21/21 11:11 37.0 C 116 H 14 101/58 L 92 02/21/21 10:55 36.8 C 113 H 14 92/60 L 92 02/21/21 10:31 36.8 C 111 H 14 100/58 L 92 02/21/21 10:01 36.8 C 109 H 14 99/57 L 92 02/21/21 09:46 36.8 C 110 H 14 101/59 L 92 02/21/21 09:30 37.0 C 108 H 14 130/82 91 02/21/21 06:09 112 H 12 91/69 L 92 02/21/21 02:47 36.6 C 100 H 16 106/64 92 02/21/21 02:42 110 H 02/21/21 02:34 115 H 95 02/21/21 02:00 113 H 15 108/60 93 02/21/21 01:58 36.8 C 108 H 16 107/69 93 02/21/21 01:30 124 H 18 107/69 95 02/21/21 01:00 120 H 17 115/72 97 Resident Activity Tracking Resident Involvement: Resident Care Provided Care Provided: Adult Hospital Medicine
[2021-02-21 13:37] LABS: Hematocrit (blood only) 22.9 % (42-52); Hemoglobin 7.3 g/dL (14.0-18.0); Mean Corpuscular Hemoglobin 31.6 pg (25-34); Mean Corpuscular Hgb Conc 31.9 g/dL (32-36); Mean Corpuscular Volume 99.1 fL (80-100); RDW Coefficient of Variation 17.4 % (11.5-14.5); RDW Standard Deviation 62.6 fL (36.4-46.3); Red Blood Count 2.31 M/uL (4.7-6.1); White Blood Count 3.45 K/uL (4.8-10.8)
[2021-02-21 13:40] LABS: INR 1.3 (0.9-1.1); Partial Thromboplastin Ratio 1.4; Partial Thromboplastin Time 36.2 Seconds (21.0-31.0); Prothrombin Time 12.5 Seconds (9.0-12.0)
[2021-02-21 13:56] LABS: Basophils # (auto) 0.01 K/uL (0-0.2); Basophils % (auto) 0.3 %; Immature Granulocytes # (auto) 0.01 K/uL (0.00-0.02); Immature Granulocytes % (auto) 0.3 %; Lymphocytes # (auto) 0.87 K/uL (1.2-3.4); Lymphocytes % (auto) 25.2 %; Mean Platelet Volume 9.7 fL (7.4-10.4); Monocytes # (auto) 0.24 K/uL (0.11-0.59); Neutrophils # (auto) 2.32 K/uL (1.4-6.5); Neutrophils % (auto) 67.2 %; Platelet Count 53 K/uL (130-400); Reticulocyte % 2.4 % (0.5-2.0); Reticulocytes # 0.06 10^6/uL (0.02-0.10); Stomatocytes 1+
[2021-02-21 14:00] LABS: Alanine Aminotransferase 54 U/L (12-78); Albumin Globulin Ratio 0.3 (0.9-2); Albumin Level 1.5 gm/dl (3.4-5.0); Alkaline Phosphatase 436 U/L (45-117); Aspartate Aminotransferase 401 U/L (15-37); BUN Creatinine Ratio 4.3 (10-20); Bilirubin,Total 9.8 mg/dl (0.2-1); Blood Urea Nitrogen 3 mg/dl (7-18); Calcium 7.8 mg/dl (8.5-10.1); Carbon Dioxide 26 mmol/L (21-32); Chloride 99 mmol/L (98-107); Creatine Kinase 39 U/L (39-308); Creatinine Clr Calc Pharmacy 162.6 ml/min; Est GFR (African American) > 150.0 ml/min; Est GFR (Non-African American) 135.9 ml/min; Globulin 5.7 gm/dl (2.5-4.0); Glucose 70 mg/dl (70-99); Phosphorus 2.9 mg/dl (2.5-4.9); Potassium 4.1 mmol/L (3.5-5.1); Sodium 135 mmol/L (136-145); Total Protein 7.2 gm/dl (6.4-8.2)
[2021-02-21] MEDS ORDERED: NORMOSOL-R 500 ML IV ONE (14:00)
[2021-02-21 14:07] LABS: Magnesium 1.4 mg/dl (1.8-2.4)
--- NOTE | 2021-02-21 14:31 | Electrocardiogram Report ---
Test Reason : Blood Pressure : / mmHG Vent. Rate : 114 BPM Atrial Rate : 114 BPM P-R Int : 132 ms QRS Dur : 082 ms QT Int : 360 ms P-R-T Axes : 044 003 031 degrees QTc Int : 496 ms Sinus tachycardia Otherwise normal ECG When compared with ECG of 07-JUL-2020 17:02, No significant change was found Confirmed by Ed Jones ([id number]) on 02/21/2021 2:31:28 PM Referred By: REFERRED SELF Confirmed By:Efraín Jones
[2021-02-21 15:20] LABS: Amphetamines+Metham, Urine Neg (Neg); Barbiturates, Urine Neg (Neg); Benzodiazepine, Urine Neg (Neg); Cocaine, Urine Neg (Neg); MDMA (Ecstacy), Urine Neg (Neg); Methadone, Urine Neg (Neg); Opiate, Urine Neg (Neg); Phencyclidine, Urine Neg (Neg)
[2021-02-21] MEDS ORDERED: AcetylCYSTEINE IV 21 HR REGIMEN (>40KG) IV STA (15:36)
[2021-02-21] MEDS ORDERED: ACETYLCYSTEINE IV ONE ×3 (16:00→22:00)
[2021-02-21] MEDS ORDERED: DEXTROSE 5% IV ONE ×3 (16:00→22:00)
[2021-02-21 18:14] LABS: Hematocrit (blood only) 24.4 % (42-52); Mean Corpuscular Hgb Conc 32.8 g/dL (32-36); Mean Corpuscular Volume 97.6 fL (80-100); RDW Standard Deviation 64.9 fL (36.4-46.3)
[2021-02-21 18:17] LABS: Mean Platelet Volume 9.5 fL (7.4-10.4); Platelet Count 43 K/uL (130-400)
[2021-02-21 18:34] LABS: Basophils # (auto) 0.01 K/uL (0-0.2); Basophils % (auto) 0.3 %; Immature Granulocytes # (auto) 0.01 K/uL (0.00-0.02); Immature Granulocytes % (auto) 0.3 %; Lymphocytes # (auto) 0.66 K/uL (1.2-3.4); Lymphocytes % (auto) 22.8 %; Monocytes # (auto) 0.06 K/uL (0.11-0.59); Monocytes % (auto) 2.1 %; Neutrophils # (auto) 2.16 K/uL (1.4-6.5); Neutrophils % (auto) 74.5 %
[2021-02-21] MEDS ORDERED: chlordiazePOXIDE ALCOHOL WITHDRAWL 25MG PO STA (19:04)
[2021-02-21] MEDS: chlordiazePOXIDE HCl 25 MG CAP PO SCH (20:44)
[2021-02-21] MEDS: PANTOprazole 80 MG in SYRINGE 0 ML IV SCH (20:45)
[2021-02-21] MEDS: MAGNESIUM SULFATE / D5W 1 GM/100 ML BAG IV SCH ×2 (20:45→23:11)
--- NOTE | 2021-02-21 22:11 | Magnetic Resonance Report ---
MR MRCP CLINICAL INDICATION: Jaundice, weakening, confusion. Alcohol and IV drug abuse. COMPARISON: None available at the time of this dictation. TECHNIQUE: Multiplanar multisequence images were obtained of the abdomen with and without the adminis tration of contrast. FINDINGS: Lower chest: No acute abnormality Liver: Hepatomegaly is seen. Gallbladder and biliary tree: The gallbladder contains layering stones. No pericholecystic edema or g allbladder wall thickening is seen. No intra- or extrahepatic biliary ductal dilation. Pancreas: Unremarkable, no focal lesions. Spleen: Splenomegaly is noted, the spleen measures 19 cm in craniocaudal dimension. Adrenals: Unremarkable. Kidneys and ureters: Unremarkable. Bowel: Unremarkable. Lymph nodes Retroperitoneal: Unremarkable. Mesenteric: Unremarkable. Peritoneum: Normal Vessels: Atherosclerotic calcifications are seen. Abdominal wall: Unremarkable. Bones: Degenerative changes in the visualized spine. IMPRESSION: 1. No biliary ductal dilation. Cholelithiasis is seen without evidence of cholecystitis. 2. Hepatosplenomegaly. ACT 112: Negative or not required by law. Electronically signed by: Harsha Wiseman M.D. 02/21/2021 10:09 PM
[2021-02-21 23:50] LABS: Hematocrit (blood only) 24.2 % (42-52); Hemoglobin 7.9 g/dL (14.0-18.0); Mean Corpuscular Hemoglobin 31.1 pg (25-34); Mean Corpuscular Volume 95.3 fL (80-100); RDW Coefficient of Variation 17.9 % (11.5-14.5); RDW Standard Deviation 62.5 fL (36.4-46.3); Red Blood Count 2.54 M/uL (4.7-6.1); White Blood Count 2.71 K/uL (4.8-10.8)
[2021-02-21 23:51] LABS: Mean Corpuscular Hgb Conc 32.6 g/dL (32-36); Mean Platelet Volume 10.1 fL (7.4-10.4); Platelet Count 41 K/uL (130-400)
[2021-02-22 00:47] LABS: Basophils # (auto) 0.01 K/uL (0-0.2); Basophils % (auto) 0.4 %; Eosinophils # (auto) 0.01 K/uL (0-0.5); Eosinophils % (auto) 0.4 %; Immature Granulocytes # (auto) 0.01 K/uL (0.00-0.02); Immature Granulocytes % (auto) 0.4 %; Lymphocytes # (auto) 0.59 K/uL (1.2-3.4); Lymphocytes % (auto) 21.8 %; Monocytes # (auto) 0.25 K/uL (0.11-0.59); Monocytes % (auto) 9.2 %; Neutrophils # (auto) 1.84 K/uL (1.4-6.5); Neutrophils % (auto) 67.8 %; RBC Morphology Unremarkable
[2021-02-22] MEDS: NSS + 20MEQ KCL 20 MEQ/1,000 ML BAG IV SCH ×3 (01:53→19:50)
[2021-02-22] MEDS: MAGNESIUM SULFATE / D5W 1 GM/100 ML BAG IV SCH (02:07)
[2021-02-22] MEDS: chlordiazePOXIDE HCl 25 MG CAP PO SCH ×4 (02:07→20:22)
[2021-02-22 03:26] LABS: Hepatitis A Antibody IgM NON-REACTIVE (NON-REACTIVE); Hepatitis B Core Antibody IgM NON-REACTIVE (NON-REACTIVE)
[2021-02-22] MEDS: OCTREOTIDE ACETATE 500 MCG in 0.9 % SODIUM CHLORIDE 100 ML IV SCH (03:58)
[2021-02-22 06:13] LABS: Hematocrit (blood only) 25.5 % (42-52); Hemoglobin 8.4 g/dL (14.0-18.0); Mean Corpuscular Hemoglobin 32.1 pg (25-34); Mean Corpuscular Hgb Conc 32.9 g/dL (32-36); Mean Corpuscular Volume 97.3 fL (80-100); RDW Coefficient of Variation 17.9 % (11.5-14.5); RDW Standard Deviation 62.9 fL (36.4-46.3); Red Blood Count 2.62 M/uL (4.7-6.1); White Blood Count 2.45 K/uL (4.8-10.8)
[2021-02-22 06:35] LABS: Mean Platelet Volume 9.8 fL (7.4-10.4); Platelet Count 42 K/uL (130-400)
[2021-02-22 06:55] LABS: Basophils # (auto) 0.01 K/uL (0-0.2); Basophils % (auto) 0.4 %; Eosinophils # (auto) 0.01 K/uL (0-0.5); Eosinophils % (auto) 0.4 %; Immature Granulocytes # (auto) 0.01 K/uL (0.00-0.02); Immature Granulocytes % (auto) 0.4 %; Lymphocytes # (auto) 0.66 K/uL (1.2-3.4); Lymphocytes % (auto) 26.9 %; Monocytes # (auto) 0.21 K/uL (0.11-0.59); Monocytes % (auto) 8.6 %; Neutrophils # (auto) 1.55 K/uL (1.4-6.5); Neutrophils % (auto) 63.3 %
[2021-02-22 07:15] LABS: Glucose 158 mg/dl (70-99)
[2021-02-22 07:19] LABS: Alanine Aminotransferase 44 U/L (12-78); Albumin Globulin Ratio 0.3 (0.9-2); Albumin Level 1.5 gm/dl (3.4-5.0); Alkaline Phosphatase 381 U/L (45-117); Aspartate Aminotransferase 283 U/L (15-37); BUN Creatinine Ratio 3.4 (10-20); Bilirubin Direct 12.5 mg/dl (0-0.2); Bilirubin,Total 15.5 mg/dl (0.2-1); Blood Urea Nitrogen 2 mg/dl (7-18); Calcium 8.3 mg/dl (8.5-10.1); Carbon Dioxide 26 mmol/L (21-32); Chloride 97 mmol/L (98-107); Creatinine Clr Calc Pharmacy 184.9 ml/min; Est GFR (African American) > 150.0 ml/min; Est GFR (Non-African American) 142.1 ml/min; Magnesium 2.5 mg/dl (1.8-2.4); Phosphorus 1.2 mg/dl (2.5-4.9); Potassium 3.5 mmol/L (3.5-5.1); Sodium 134 mmol/L (136-145)
--- NOTE | 2021-02-22 07:20 | Critical Care Progress Note ---
Date of Service February 22, 2021 Assessment & Plan (1) Acute on chronic alcoholic liver disease: Plan: Reason Critically Ill: 30 year old male w/ PMHx of alcohol use disorder, current IVDU, and hx of esophageal varices, and hx of pos blood cultures who presents w/ intermittent AMS and jaundice secondary to alcohol use disorder. He is transferred to ICU because of Hb drop from 9.5 to 6.6 in 10 hours overnight, concerning for acute blood loss anemia. Current mentation is appropriate. Neuro - [facility] ICU: negative Head CT: no acute process. tobacco use disorder: will order nicotine patch if develops withdrawal symptoms. Cardiac - tachycardia, w/ BPs 90s/60. MAP appropriate, but will monitor - likely from acute blood loss anemia w/ some element etoh withdrawal. ecg sinus tach w/o ischemic changes. continue telemetry. Respiratory - Satting 91-92 on RA, denies resp complaint. Titrate >90%. Incentive spirometry. Repeated cxr because of physical exam, result neg. GI - Resumed diet. Restarting home gabapentin. acute alcoholic hepatitis Isolated AST elevation, consistent w/ etoh pattern abd us ruq, canceled because has MRCP ordered. CT abd/pelv: CT abd pelvis: parital distention of gallbladder w/ sludge and mild wall thickening w/ equivocal pericholecystic stranding. Hepatosplenomegaly w/ severe hepatic steatosis. uptrending direct hyperbilirubinemia w/ downtrending AST. DF 15.8 (yesterday's PT). repeat PT INR Peripheral smear neg for hemolysis. Retic count 2.4%, but not new. Added LDH, haptoglobin labs. Ordered viral labs. acute blood loss anemia 9.5(9pm)->6.6 (7AM)->7.3(1:30PM, s/p 1u platelets and pRBC). W/ hx of esophageal varices, concerning for UGIB. Considered lab error because multiple abrupt declines in CBC. However, less likely because Hb 6.6->7.3 after 1 unit platelets and 1 unit of PRBCs. S/P 1 u platelets and 1 uPRBC this AM Will check CBC at 1:30PM and q4h thereafter. Will assess whether another unit of PRBC indicated and will continue discussion w/ GI to determine if EGD indicated. GI consulted. Lower suspicion for bleed given lack of clinical symptoms of bleeding. Started on empiric Rocephin and octreotide for possible bleeding varices. Patient's H/H was stable overnight, reassuring. RENAL/LYTES - Follow BMP, Mg, phos Replace lytes as needed. hypophos 1.2 this AM repleting w/ 30 mmol kphos metabolic acidosis (presumed), improving/resolved w/ positive lactate. less likely alcoholic ketoacidosis w/ UA neg for ketones No blood gas obtained. Would presume resp compensation. No tachypnea noted. anion gap since closed - No concerns at this time. Voiding. ENDO - No hx of DM or thyroid disease. TSH 4.53H, w/ normal fT4 1.1. May be transient subclinical hypothyroidism 2/2 illness; no treatment indicated. Previous TSH in 06/2020 wnl. HEME - hold chemo ppx anemia, thrombocytopenia, leukopenia Hb 9.5 dropped to 6.6 overnight (10 hours). ordered peripheral smear. Last smear in 07/2020, did not suggest myelodysplasia. Considered lab error as above. Follow CBC as above. See workup below. alcohol use disorder 5mg iv vitamin k. 500 mg thiamine today, 200 mg daily after. Currently on AWSS IV ativan protocol. Changed AWSS score of 6,7->1 mg IV ativan to score of 5-7. After off NPO, will switch to Librium taper (dose adjusted for liver disease). Of note, patient takes ~0.5mg of Klonopin daily at home PRN for anxiety. Ordered serum tylenol ck lactate peripheral smear, retic count. cbc q4h x2. UDS, folate, cmp, mg, phos. ID - blood and urine cultures pending, follow. Afebrile. UA w/ nitrite and 4+ bacteria. Deferred repeating UA because started on abx. LINES/IV ACCESS -PIVs intact. DVT PROPHYLAXIS - SCDs only because of pancytopenia and thrombocytopenia code: full dispo: stable for downgrade from ICU. Will need close f/u regarding etoh use and possible rehab. (2) Acute anemia: (3) Alcoholism: (4) GERD (gastroesophageal reflux disease): (5) Depression: (6) IV drug abuse: (7) Alcohol abuse: (8) Tachycardia: (9) Lactic acidosis: (10) Leukopenia: (11) Thrombocytopenia: (12) Tobacco use disorder: (13) Hepatosplenomegaly: (14) Coagulopathy: (15) Weakness: Admission and Anticipated Discharge Date Admission Date: February 20, 2021 Supervising Physician Co-Signing Physician Notes H&H is improved, no evidence of significant varices on previous endoscopy listed as mild will discontinue octreotide we will continue Rocephin. Decrease PPI to 40 twice daily and continue. Advance diet as tolerated. Encourage alcohol abstinence and alcoholics anonymous for recovery, from critical care standpoint will sign off/patient stable for downgrade out of ICU. Subjective Patient feels about the same. His anxiety is slightly worse. He was unable to sleep much during the night. He had some mild chills/sweats overnight. No palpitations, cp, sob. Review of Systems Review of Systems: All systems reviewed & are unremarkable except as noted in HPI & below Constitutional: Denies fever, chills, diaphoresis Eyes: Denies blurry vision, vision changes Cardiovascular: Denies chest pain. Denies palpitations. Respiratory: Denies shortness of breath Gastrointestinal: Denies nausea, vomiting, constipation, diarrhea. Denies abd pain when abd is not palpated. Genitourinary: Denies urinary symptoms including dysuria Musculoskeletal: Denies weakness, muscle aches/pain, joint aches/pain Neurological: Denies headache, focal weakness. Physical Exam Physical Exam: General: A&Ox4. NAD. Cooperative. HEENT: Atraumatic, normocephalic. MMM. + scleral icterus. Pulm: CTAB. -wheezes, -rales, -rhonchi. No respiratory distress. Cardiac: Regular rate regular rhythm, -mrg. Abdominal: Mild TTP at RUQ and epigastrium. + hepatomegaly. Integ: + jaundice. PIVs appropriate. Neuro: Mild tremor of hands, improved from yesterday. Moving all extremities. Psych: Denies hallucinations Results & Data Results & Data ([facility]) Vital Signs (Past 12 Hours) Vital Signs tachy 11-s->100s->90s. had bp low of 97/61. Pulse Resp BP Pulse Ox 02/22/21 05:10 95 H 14 102/69 93 02/22/21 04:10 90 15 97/61 L 94 02/22/21 03:10 102 H 13 101/67 93 02/22/21 02:10 115 H 15 121/73 94 02/22/21 01:10 105 H 13 106/64 93 02/22/21 00:10 103 H 11 L 110/71 93 02/21/21 23:10 113 H 14 107/68 94 02/21/21 22:10 112 H 13 105/73 92 02/21/21 21:53 122 H 15 02/21/21 20:04 115 H 16 104/66 92 Laboratory Results wbc 2.45. Hb 8->7.9->8.4. Plts 43->41->42. plt smear w/ pancytopenia w/o myelodysplasia or hemolysis. Na 134 stable. coas stable. K 3.5. phos 1.2. T bili 15.5H. D bili 12.5H. ast 401->283 alk phos 436->381. utox neg Cardiac Enzymes 02/21/21 02/22/21 Range/Units 13:17 05:44 AST 401 H 283 H (15-37) U/L Coagulation 02/21/21 Range/Units 13:17 PT 12.5 H (9.0-12.0) Seconds APTT 36.2 H (21.0-31.0) Seconds CBC 02/21/21 02/21/21 02/21/21 Range/Units 06:55 13:17 18:08 WBC 3.45 L 2.90 L (4.8-10.8) K/uL RBC 2.31 L 2.50 L (4.7-6.1) M/uL Hgb 7.3 L 8.0 L (14.0-18.0) g/dL Hct 22.9 L 24.4 L (42-52) % Plt Count 45 L D 53 L 43 L (130-400) K/uL Neut # (Auto) 1.12 L 2.32 2.16 (1.4-6.5) K/uL Lymph # (Auto) 0.63 L 0.87 L 0.66 L (1.2-3.4) K/uL Gilchrist # (Auto) 0.18 0.24 0.06 L (0.11-0.59) K/uL Eos # (Auto) 0.00 0.00 0.00 (0-0.5) K/uL Baso # (Auto) 0.01 0.01 0.01 (0-0.2) K/uL 02/21/21 02/22/21 Range/Units 23:44 05:44 WBC 2.71 L 2.45 L (4.8-10.8) K/uL RBC 2.54 L 2.62 L (4.7-6.1) M/uL Hgb 7.9 L 8.4 L (14.0-18.0) g/dL Hct 24.2 L 25.5 L (42-52) % Plt Count 41 L 42 L (130-400) K/uL Neut # (Auto) 1.84 1.55 (1.4-6.5) K/uL Lymph # (Auto) 0.59 L 0.66 L (1.2-3.4) K/uL Gilchrist # (Auto) 0.25 0.21 (0.11-0.59) K/uL Eos # (Auto) 0.01 0.01 (0-0.5) K/uL Baso # (Auto) 0.01 0.01 (0-0.2) K/uL Comprehensive Metabolic Panel 02/21/21 02/22/21 Range/Units 13:17 05:44 Sodium 135 L 134 L (136-145) mmol/L Potassium 4.1 D 3.5 (3.5-5.1) mmol/L Chloride 99 97 L (98-107) mmol/L Carbon Dioxide 26 26 (21-32) mmol/L BUN 3 L 2 L (7-18) mg/dl Creatinine 0.58 L 0.52 L (0.6-1.4) mg/dl Glucose 70 (70-99) mg/dl Calcium 7.8 L 8.3 L (8.5-10.1) mg/dl Direct Bilirubin 12.5 H D (0-0.2) mg/dl AST 401 H 283 H (15-37) U/L ALT 54 44 (12-78) U/L Alkaline Phosphatase 436 H 381 H (45-117) U/L Total Protein 7.2 6.5 (6.4-8.2) gm/dl Albumin 1.5 L 1.5 L (3.4-5.0) gm/dl Intake and Output 02/21/21 02/22/21 02/22/21 22:59 06:59 14:59 Intake Total 1823.375 / 5600.433 1305 / 5600.433 Output Total 1000 / 2801 1801 / 2801 Balance 823.375 / 2799.433 -496 / 2799.433 Intake: IV 1113.375 / 4353.433 1305 / 4353.433 AcetylCYSTEINE 9,350 mg In 223.333 / 223.333 Dextrose 5% 200 ml @ 200 mls/hr IV ONCE ONE Rx#:[id number] AcetylCYSTEINE 3,120 mg In 515.6 / 515.6 Dextrose 5% 500 ml @ 125 mls/hr IV ONCE ONE Rx#:[id number] Magnesium Sulfate / D5w 1 gm In 100 / 300 200 / 300 100 ml @ 50 mls/hr IV Q2H [facility] Rx#:[id number] Nss + 20Meq KCl 20 meq In 1,000 226.667 / 2000.000 1000 / 2000.000 ml @ 100 mls/hr IV .Q10H [facility] Rx#:[id number] Octreotide Acetate 500 mcg In 0 47.775 / 210.000 105 / 210.000 .9 % Sodium Chloride 100 ml @ 50 MCG/HR 10.5 mls/hr IV .Q10H [facility] Rx#:[id number] Oral 400 / 400 0 / 400 Intake (Blood Product) Amt 310 / 847 Packed Cells, Leukoreduced 310 / 310 Unit [id number] Output: Urine 1000 / 2800 1800 / 2800 # Bowel Movements / Other: Weight 63.5 kg Weight Measurement Method Built in [facility] Diagnostic Findings Chest X-Ray 02/20/21 21:19 XR chest 1V portable HISTORY: weakness COMPARISON: Chest CTA 07/07/2020. FINDINGS: The lungs are clear. Cardiac silhouette is normal in size. No pleural effusions. No pneumothorax. IMPRESSION: No acute process. ACT 112: Negative or not required by law. Electronically signed by: New Yepez M.D. 02/21/2021 8:16 AM Abdomen/Pelvis CT 02/20/21 22:[address] WITH IV CONTRAST CT DOSE: 954.52 mGy.cm HISTORY: Acutely elevated LFTs elevated LFT/bili TECHNIQUE: Multiaxial CT images of the abdomen and pelvis were performed following the IV administration of 93 cc of Optiray, A dose lowering technique was utilized adhering to the principles of ALARA. COMPARISON STUDY: MRCP 02/21/2021, CT abdomen pelvis 07/07/2020 FINDINGS: The imaged inferior cardiac chambers are unremarkable. The lung bases appear clear. No pneumatosis or pneumoperitoneum. The spleen is enlarged measuring up to 17.5 cm in length. Severe hepatic steatosis with hepatomegaly. No evidence of cirrhosis or hepatic mass. Patency of the hepatic and portal veins. Hyperattenuating material within the gallbladder lumen is suggestive of sludge. There is partial distention of the gallbladder with mild wall thickening and equivocal pericholecystic stranding. No biliary ductal dilation. Unremarkable kidneys. No hydronephrosis. Urinary bladder wall thickening with partial distention. Unremarkable prostate. Mild atherosclerosis of the aorta without aneurysm. No adenopathy. Unremarkable IVC. No bowel obstruction or bowel wall thickening. There is mild fecal retention. Noninflamed appendix. Scattered small bowel air-fluid levels. Unremarkable soft tissues. No acute fracture. IMPRESSION: 1. Partial distention of the gallbladder is noted with suggested gallbladder sludge and mild wall thickening with equivocal pericholecystic stranding. Findings should be correlated with clinical presentation to exclude acute cholecystitis. 2. No biliary ductal dilation. 3. Hepatosplenomegaly with severe hepatic steatosis. 4. No bowel obstruction or bowel wall thickening. Normal appendix. ACT 112: Negative or not required by law. The above report was generated using voice recognition software. It may contain grammatical, syntax or spelling errors. Electronically signed by: Cristóbal Lion M.D. 02/21/2021 8:36 AM Cholangiopancreatography MRI 02/21/21 03:40 MR MRCP CLINICAL INDICATION: Jaundice, weakening, confusion. Alcohol and IV drug abuse. COMPARISON: None available at the time of this dictation. TECHNIQUE: Multiplanar multisequence images were obtained of the abdomen with and without the administration of contrast. FINDINGS: Lower chest: No acute abnormality Liver: Hepatomegaly is seen. Gallbladder and biliary tree: The gallbladder contains layering stones. No pericholecystic edema or gallbladder wall thickening is seen. No intra- or extrahepatic biliary ductal dilation. Pancreas: Unremarkable, no focal lesions. Spleen: Splenomegaly is noted, the spleen measures 19 cm in craniocaudal dimens ion. Adrenals: Unremarkable. Kidneys and ureters: Unremarkable. Bowel: Unremarkable. Lymph nodes Retroperitoneal: Unremarkable. Mesenteric: Unremarkable. Peritoneum: Normal Vessels: Atherosclerotic calcifications are seen. Abdominal wall: Unremarkable. Bones: Degenerative changes in the visualized spine. IMPRESSION: 1. No biliary ductal dilation. Cholelithiasis is seen without evidence of cholecystitis. 2. Hepatosplenomegaly. ACT 112: Negative or not required by law. Electronically signed by: Harsha Wiseman M.D. 02/21/2021 10:09 PM Chest X-Ray 02/21/21 09:40 XR chest 1V portable HISTORY: 30 years-old Male low sats. decreased breath sounds RLQ acute hypoxia COMPARISON: Chest radiograph 02/20/2021 TECHNIQUE: Portable AP view of the chest FINDINGS: Cardiac silhouette is upper limits of normal in size. No pneumothorax, pleural effusion, airspace consolidation or overt pulmonary edema. Mild interstitial coarsening of the lung bases is likely secondary to patient body habitus. No acute fracture. IMPRESSION: No acute process. ACT 112: Negative or not required by law. The above report was generated using voice recognition software. It may contain grammatical, syntax or spelling errors. Electronically signed by: Cristóbal Lion M.D. 02/21/2021 10:30 AM Resident Activity Tracking Resident Involvement: Resident Care Provided Care Provided: Adult Hospital Medicine
[2021-02-22] MEDS ORDERED: POTASSIUM PHOS 3 MMOL/1 ML INFUSION IV STA ×3 (07:27→22:27)
[2021-02-22] MEDS ORDERED: POTASSIUM PHOSPHATE 30 MMOL in SODIUM CHLORIDE 0.9% 500 ML IV ONE (08:00)
[2021-02-22] MEDS: THIAMINE HCL 100 MG TAB PO SCH (08:44)
[2021-02-22] MEDS: MULTIVITAMIN TAB PO SCH (08:44)
[2021-02-22] MEDS: VITAMIN B COMPLEX TAB PO SCH (08:44)
[2021-02-22] MEDS: FOLIC ACID 1 MG TAB PO SCH (08:44)
[2021-02-22] MEDS: THIAMINE HCL 200 MG in SODIUM CHLORIDE 0.9% 50 ML IV SCH (08:45)
[2021-02-22] MEDS: cefTRIAXone SODIUM 1,000 MG in DEXTROSE 5% 50 ML IV SCH (08:51)
[2021-02-22] MEDS: PANTOprazole 80 MG in SYRINGE 0 ML IV SCH (08:52)
[2021-02-22 09:04] LABS: Total Protein 6.5 gm/dl (6.4-8.2)
--- NOTE | 2021-02-22 09:51 | Billing Data ---
Date of Service February 22, 2021 Coding Level of Care Code 07505 Subseq Hosp Care Lvl 3
[2021-02-22] MEDS: GABAPENTIN 800 MG TAB PO SCH ×3 (11:11→20:22)
--- NOTE | 2021-02-22 12:03 | Hospitalist Progress Note ---
Date of Service February 22, 2021 Assessment & Plan (1) Acute on chronic alcoholic liver disease: Plan: The patient is a 30-year-old male with a past medical history of alcohol abuse, alcoholism, h/o fungemia, IV drug abuse, esophageal varices, peripheral neuropathy, folate deficiency, GERD and depression. He was admitted to [facility] on 02/20 for acute on chronic liver disease. He was transferred to the ICU on 02/21 and downgraded back to floor status on 02/22. Acute on Chronic Alcoholic Liver Failure Significant alcohol abuse, ALT 583 and TBili 8.7 on admission --> alcoholic hepatitis. Gallbladder pathology per CT A/P (gallbladder sludge) is a chronic finding and patient does not have symptoms of cholecystitis. MRCP without signs of biliary obstruction. Hepatitis panel negative. - LFTs downtrending but TBili increased to 15.5 today - Discriminant score 13.4 --> 17.8 today - MELD score 22 --> 19.6% 3-month mortality - HSV1/2, CMV, EBV pending - GI consulted - appreciate recs - no steroids for now - not a candidate for transplant given alcohol abuse Acute on Chronic Macrocytic Anemia Chronic anemia likely due to alcohol abuse. Acute exacerbation due to possible upper GI bleed, as the patient has severe alcoholic hepatic steatosis and history of esophageal varices per previous EGD; however H/H relatively stable for >24 hours and no s/s GI bleeding. Also cannot r/o hemolytic process witout further testing. - s/p 2unit pRBCs yesterday; further infusions for Hgb <7 - peripheral smear without signs of hemolysis and LDH 219 (WNL); haptoglobin pending - continue IVFs with NSS +20mEq KCl @100cc/hr - continue folate/vitamin B12 - GI consulted as stated above - will hold on EGD for now - continue Protonix 40mg IV BID Severe Alcohol Use Disorder - continue AWSS protocol with PRN Ativan - continue Librium taper given severe alcohol abuse (day 2) - continue high-dose Thiamine and folate Urinary Tract Infection Urinary symptoms for several days, dirty UA with positive nitrites, urine culture positive for GNB (final sensitivities/speciation pending). - continue Ceftriaxone 1g IV Q24H (day 27) - follow urine/blood cx Hypokalemia/Hypophosphatemia Suspect re-feeding syndrome in context of severe alcohol abuse and malnutrition. - repleted Peripheral Neuropathy - continue home Gabapentin FEN/GI: low-sodium diet, IVFs DVT Prophylaxis: hold chemoppx for now given elevated INR and possible GI bleed Code Status: Full code Disposition: ICU (2) Hepatosplenomegaly: (3) Alcohol abuse: (4) Anemia, macrocytic: (5) Neuropathy, peripheral: (6) GERD (gastroesophageal reflux disease): (7) Depression: (8) IV drug abuse: Admission and Anticipated Discharge Date Admission Date: February 20, 2021 Supervising Physician Co-Signing Physician Notes Attending attestation Pt seen and examined in concert with Dr. Bethea. In agreement with the documented findings as noted in the resident documentation with any exceptions or additions as noted here. Overall improvement in fatigue and ambulatory stability today though overall significantly weak compared to baseline. Tolerating POI On examination, stable jaundice and scleral icterus. Some resting tremor, though overall improved. S1/S2 nl RRR no MCG. CTAB. Abd NT/ND BS+ve Acute alcoholic hepatitis - increasing bilirubin with decreasing transaminitis - GI consult - trend CMP Acute on chronic macrocytic anemia - likely folate 2/2 etOH, ,s/p 2UPRBC - change to protonix 40mg BID IV, monitor H/H q12 for now UTI - continue ceftriaxone, follow up Cx Severe alcohol use disorder - AWSS with librium, supplement thiamine/folate, monitor FEN - replete PO4, K+ Else see resident documentation as noted. Subjective No acute events overnight. Had two bowel movements that were brown/soft. This morning the patient reports that malodorous urine and urinary urgency are resolving. Remains jaundiced. Denies fever/chills, chest pain, palpitations, SOB, cough, N/V, abdominal pain. Review of Systems Review of Systems: All systems reviewed & are unremarkable except as noted in HPI & below Physical Exam Physical Exam: General: A&Ox3. NAD. Cooperative. HEENT: Atraumatic, normocephalic. Scleral icterus present Pulm: CTAB A&P. -wheezes, -rales, -rhonchi. Symmetrical chest rise. No increase work of breathing. No respiratory distress. Cardiac: RRR, -mrg. Radial pulses intact and symmetrical. Abdominal: soft, non-tender, non-distended, BS x 4 Skin: face/arms jaundiced, skin warm/dry Neuro: bilateral hand tremors, no asterixis Results & Data Results & Data ([facility]) Vital Signs (Past 12 Hours) Vital Signs Pulse Resp BP Pulse Ox 02/22/21 11:10 95 H 15 113/72 94 02/22/21 10:10 92 H 16 109/69 93 02/22/21 09:10 104 H 13 104/74 94 02/22/21 09:00 90 02/22/21 08:10 96 H 13 104/75 93 02/22/21 07:09 92 H 15 97/63 L 92 02/22/21 06:09 93 H 13 108/66 92 02/22/21 05:10 95 H 14 102/69 93 02/22/21 04:10 90 15 97/61 L 94 02/22/21 03:10 102 H 13 101/67 93 02/22/21 02:10 115 H 15 121/73 94 02/22/21 01:10 105 H 13 106/64 93 02/22/21 00:10 103 H 11 L 110/71 93 Resident Activity Tracking Resident Involvement: Resident Care Provided Care Provided: Adult Hospital Medicine
[2021-02-22 14:08] LABS: Hematocrit (blood only) 22.9 % (42-52); Hemoglobin 7.5 g/dL (14.0-18.0)
--- NOTE | 2021-02-22 14:08 | Gastroenterology Progress Note ---
Date of Service February 22, 2021 Assessment & Plan (1) Alcoholic hepatitis: Plan: DF today (using yesterday's PT) = 17. Suggest w/u for hemolytic anemia in light of increasing bilirubin and decreasing AST, ALT and Alk Phos. Appreciate bean viner management of anemia (stable and no gross GI bleeding) and ongoing management of electrolyte derangements (Ph 1.2, Mag 2.5) Acute pancytopenia/anemia ? secondary to hepatitis, infection or recent IV drug use. There is no hx of cirrhosis or suggestion of cirrhosis on imaging though he has had small esophageal varices in the past (on EGD). Recommend against steroids for tx of ETOH hepatitis as has low DF. Not a candidate for liver transplant eval at this time because continuing with substance abuse. Recheck LFTs, PT/INR tomorrow. Admission and Anticipated Discharge Date Admission Date: February 20, 2021 Supervising Physician Co-Signing Physician Notes Attending attestation I have seen, examined this patient, and agree with the findings and above by our mid-level provider Ms. Linda VENTURA, with the following additions: -Patient doing well, no signs of bleeding, hemoglobin responded appropriately with transfusion. -Bilirubin did increase today, would be concerned with cholestasis of sepsis and/or hemolysis as potential etiologies. Given the concern of infection including urinary tract infection this is an discriminant function being less than 32 would not pursue steroids at this time. -Continue supportive care Subjective Pt alert. When sleeping easily aroused. Says feels a bit better. Feels, "hot," denies nausea/vomiting or abdominal pain. Bilirubin up today 5.8->12.5 Hb stable post 2 unit transfusion at 8.4. Asks to eat. Review of Systems Review of Systems: ROS: Gen: + weakness No fevers, unsure if weight loss Eyes: No eye redness, or pain, no recent vision changes Resp: No SOB, no cough Cardio: No palpitations/irregular beats, no chest pain GI: Per HPI otherwise (-) : + very dark urine Denies pain on urination Skin: + jaundice, itching or new rashes Physical Exam Constitutional: well developed, + ill appearing, + thin and cooperative Respiratory: normal respiratory effort, lungs clear to auscultation Cardiovascular: RRR, no murmur, no edema Gastrointestinal (Abdomen): Inspection/Auscultation: + abdomen distended (mildly, softly) and + hypoactive bowel sounds Skin: no rashes, warm and dry Neurologic: PERRL, EOMI, accommodation nl, no face palsy, no dysarthria awake; not confused Psychiatric: A+Ox3, euthymic affect Orientation: alert, oriented x 3 and cooperative Lymphatic: no cervical or axillary lymphadenopathy Results & Data ([facility]) Vital Signs (Past 12 Hours) Vital Signs Pulse Resp BP Pulse Ox 02/22/21 12:10 97 H 16 102/64 92 02/22/21 11:10 95 H 15 113/72 94 02/22/21 10:10 92 H 16 109/69 93 02/22/21 09:10 104 H 13 104/74 94 02/22/21 09:00 90 02/22/21 08:10 96 H 13 104/75 93 02/22/21 07:09 92 H 15 97/63 L 92 02/22/21 06:09 93 H 13 108/66 92 02/22/21 05:10 95 H 14 102/69 93 02/22/21 04:10 90 15 97/61 L 94 02/22/21 03:10 102 H 13 101/67 93 02/22/21 02:10 115 H 15 121/73 94 Laboratory Results WBC 2.45, Hb 8.4, Hct 25.5, glucose 42, Na 134 K 3.5, Cl 97, CO2 26, BUN 2, Cr 9.52. T Bili 15, D Bili 12.5, AST 283, ALT 44, Alk Phos 381 Ph 1.2, Mg 2.5 Diagnostic Findings MRCP 02/21: No biliary ductal dilation. Cholelithiasis is seen without evidence of cholecystitis. 2. Hepatosplenomegaly. CTAP w IV, no oral contrast 02/20/21: 1. Partial distention of the gallbladder is noted with suggested gallbladder sludge and mild wall thickening with equivocal pericholecystic stranding. Findings should be correlated with clinical presentation to exclude acute cholecystitis. 2. No biliary ductal dilation. 3. Hepatosplenomegaly with severe hepatic steatosis. 4. No bowel obstruction or bowel wall thickening. Normal appendix.
[2021-02-22 14:32] LABS: BUN Creatinine Ratio 2.6 (10-20); Blood Urea Nitrogen 2 mg/dl (7-18); Calcium 8.1 mg/dl (8.5-10.1); Carbon Dioxide 24 mmol/L (21-32); Chloride 101 mmol/L (98-107); Creatinine Clr Calc Pharmacy 162.9 ml/min; Est GFR (African American) > 150.0 ml/min; Est GFR (Non-African American) 134.9 ml/min; Glucose 140 mg/dl (70-99); Potassium 3.4 mmol/L (3.5-5.1); Sodium 136 mmol/L (136-145)
[2021-02-22] MEDS ORDERED: POTASSIUM PHOSPHATE 40 MMOL in SODIUM CHLORIDE 0.9% 1000ML 1,000 ML IV ONE (15:15)
[2021-02-22] MEDS ORDERED: LORazepam 3 MG/6 ML VIAL IV PRN (18:04)
[2021-02-22] MEDS ORDERED: ATIVAN IV ALCOHOL WITHDRAWL IV PRN (18:04)
[2021-02-22] MEDS: LORazepam 1 MG/2 ML VIAL IV PRN (18:20)
--- NOTE | 2021-02-22 19:28 | CT Scan Report ---
CT head/brain wo con Clinical Indication: Status post fall. Anemia.. Technique: Contiguous axial CT images of the head were acquired from the base of the skull to the chandana modesto without intravenous contrast administration. Images were viewed in brain, subdural and bone windo ws. Automated dose lowering techniques and/or adjustment according to patient size were utilized for this exam. Comparison: None available at the time of this dictation. Findings: The ventricles, basal cisterns, and cerebral sulci are normal. There is no acute intracranial hemorrh age or evidence of acute territorial infarction. Neither mass effect, shift of the midline structures , nor abnormal extra-axial fluid collections are shown. Imaged portions of the paranasal sinuses and mastoid air cells are clear. The orbits appear normal. There are no acute fractures of the calvaria or scalp swelling. Impression: No acute intracranial hemorrhage, evidence of acute territorial infarction, or other acute intracrani al disease process. ACT 112: Negative or not required by law. Electronically signed by: Harsha Wiseman M.D. 02/22/2021 7:27 PM
[2021-02-22] MEDS: PANTOprazole 40 MG in SYRINGE 0 ML IV SCH (20:21)
[2021-02-22] MEDS ORDERED: PANTOprazole 40 MG TAB PO SCH (21:00)
[2021-02-22 21:29] LABS: BUN Creatinine Ratio 2.6 (10-20); Blood Urea Nitrogen 2 mg/dl (7-18); Calcium 7.9 mg/dl (8.5-10.1); Carbon Dioxide 23 mmol/L (21-32); Chloride 104 mmol/L (98-107); Creatinine Clr Calc Pharmacy 147.9 ml/min; Est GFR (African American) > 150.0 ml/min; Est GFR (Non-African American) 129.6 ml/min; Glucose 135 mg/dl (70-99); Potassium 3.7 mmol/L (3.5-5.1); Sodium 138 mmol/L (136-145)
[2021-02-22] MEDS ORDERED: POTASSIUM PHOSPHATE 15 MMOL in SODIUM CHLORIDE 0.9% 250 ML IV ONE (22:45)
[2021-02-23] MEDS: LORazepam 1 MG/2 ML VIAL IV PRN ×2 (00:14→05:28)
[2021-02-23 05:01] LABS: Hemoglobin 7.8 g/dL (14.0-18.0); Mean Corpuscular Hemoglobin 31.8 pg (25-34); Mean Corpuscular Hgb Conc 32.5 g/dL (32-36); RDW Coefficient of Variation 17.5 % (11.5-14.5); RDW Standard Deviation 61.9 fL (36.4-46.3); Red Blood Count 2.45 M/uL (4.7-6.1); White Blood Count 1.95 K/uL (4.8-10.8)
[2021-02-23] MEDS: chlordiazePOXIDE HCl 25 MG CAP PO SCH ×2 (05:06→12:32)
[2021-02-23] MEDS: NSS + 20MEQ KCL 20 MEQ/1,000 ML BAG IV SCH ×2 (05:06→14:58)
[2021-02-23 05:10] LABS: INR 1.2 (0.9-1.1); Prothrombin Time 11.9 Seconds (9.0-12.0)
[2021-02-23 05:43] LABS: Alanine Aminotransferase 44 U/L (12-78); Albumin Level 1.5 gm/dl (3.4-5.0); Blood Urea Nitrogen < 1 mg/dl (7-18); Calcium 7.7 mg/dl (8.5-10.1); Carbon Dioxide 24 mmol/L (21-32); Chloride 107 mmol/L (98-107); Creatinine Clr Calc Pharmacy 165.7 ml/min; Est GFR (African American) > 150.0 ml/min; Est GFR (Non-African American) 135.9 ml/min; Glucose 97 mg/dl (70-99); Sodium 139 mmol/L (136-145)
[2021-02-23 05:54] LABS: Bilirubin,Total 13.8 mg/dl (0.2-1); Magnesium 1.5 mg/dl (1.8-2.4); Phosphorus 2.5 mg/dl (2.5-4.9); Potassium 4.4 mmol/L (3.5-5.1)
[2021-02-23 05:55] LABS: Total Protein 6.5 gm/dl (6.4-8.2)
[2021-02-23 06:00] LABS: Basophils # (auto) 0.02 K/uL (0-0.2); Eosinophils # (auto) 0.02 K/uL (0-0.5); Immature Granulocytes # (auto) 0.01 K/uL (0.00-0.02); Immature Granulocytes % (auto) 0.5 %; Lymphocytes % (auto) 25.6 %; Mean Platelet Volume 11.1 fL (7.4-10.4); Monocytes # (auto) 0.07 K/uL (0.11-0.59); Monocytes % (auto) 3.6 %; Neutrophils # (auto) 1.33 K/uL (1.4-6.5); Neutrophils % (auto) 68.3 %; Platelet Count 59 K/uL (130-400); Platelet Estimate Decreased (Normal); RBC Morphology Unremarkable
[2021-02-23 06:12] LABS: Albumin Globulin Ratio 0.3 (0.9-2); Alkaline Phosphatase 362 U/L (45-117)
[2021-02-23 06:14] LABS: Aspartate Aminotransferase 255 U/L (15-37)
[2021-02-23] MEDS: MAGNESIUM SULFATE / D5W 1 GM/100 ML BAG IV SCH ×3 (07:33→11:51)
[2021-02-23] MEDS: LORazepam 2 MG/4 ML VIAL IV PRN ×2 (07:33→12:32)
[2021-02-23] MEDS: VITAMIN B COMPLEX TAB PO SCH (09:23)
[2021-02-23] MEDS: GABAPENTIN 800 MG TAB PO SCH ×3 (09:23→19:54)
[2021-02-23] MEDS: MULTIVITAMIN TAB PO SCH (09:23)
[2021-02-23] MEDS: FOLIC ACID 1 MG TAB PO SCH (09:23)
[2021-02-23] MEDS: THIAMINE HCL 200 MG in SODIUM CHLORIDE 0.9% 50 ML IV SCH (09:27)
[2021-02-23] MEDS: cefTRIAXone SODIUM 1,000 MG in DEXTROSE 5% 50 ML IV SCH (09:28)
[2021-02-23] MEDS: PANTOprazole 40 MG in SYRINGE 0 ML IV SCH ×2 (09:28→19:56)
--- NOTE | 2021-02-23 12:01 | Gastroenterology Progress Note ---
Date of Service February 23, 2021 Assessment & Plan (1) Alcoholic hepatitis: Plan: DF today (using yesterday's PT) = 13.3. Recommend against steroids for tx of ETOH hepatitis as has low DF. Suggest anemia from source other than GI bleeding. Acute pancytopenia/anemia ? secondary to hepatitis, infection or recent IV drug use. Appreciate intensivists work up for other anemias, ongoing management of electrolyte derangements, alcohol withdrawn. There is no hx of cirrhosis or suggestion of cirrhosis on imaging though he has had small esophageal varices in the past (on EGD). Not a candidate for liver transplant eval at this time because continuing with substance abuse. Recheck Hb/Hct, LFTs, PT/INR tomorrow. No GI contraindication to a regular consistency low salt diet. Admission and Anticipated Discharge Date Admission Date: February 20, 2021 Supervising Physician Co-Signing Physician Notes Attending attestation I have seen, examined this patient, and agree with the findings and above by our mid-level provider LORENZO Mai, with the following additions: - Mild confusion/delirium, no alysia asterixis but possibly as well as confounding with possible EtoH w/d/treatment - Attempt Xifaxin 550 mg bid trial, would hold lactulose if has 3 BM's daily - Monitor electrolytes - Continue to treat UTI - No signs of bleeding - Call with questions Subjective 30 yr old male pt ETOH abuse, most recent drink the day of admission. Admits to suboxone IV abuse/ Hb 9.5-> 7.8 today after 2 units RBCs on 02/21. Passing brown BMs. No gross GI bleeding. T Bili 8.7 on arrival ->15.5 max yesterday -> 13.8 today. AST 274 on arrival- >453 max on 02/21->255 today. Alk Phos 557 on arrival to 362 today. ALT has been normal. He is seen and examined while resting in bed in the ICU. He is awake, alert, oriented and hemodynamically stable though appears jaundiced and chronically ill. HR 100- 110, no hypotension, + tremor. Reports anxiety. Most recent prior EGD in May for nausea/vomiting with small varies, gastritis. Review of Systems Review of Systems: ROS: Gen: + weakness No fevers, weight loss Eyes: No eye redness, or pain, no recent vision changes Resp: No SOB, no cough Cardio: + palpitations; no irregular beats, no chest pain GI: No abdominal pain, no nausea/vomiting : Denies pain on urination Skin: + jaundice M/S achy all over but no red/swollen or painful joints Psych: + anxiety A total of 10 systems were reviewed, all others (-). Physical Exam Constitutional: well developed, + ill appearing, + thin and cooperative Eyes: PERRL, conjunctivae normal, anicteric sclerae ENMT: external ear and nose normal, oropharynx normal Neck: trachea midline, no thyromegaly Respiratory: normal respiratory effort, lungs clear to auscultation Cardiovascular: RRR, no murmur, no edema Gastrointestinal (Abdomen): Inspection/Auscultation: abdomen normal to inspection and + hypoactive bowel sounds; abdomen not distended Skin: no rashes, warm and dry Neurologic: PERRL, EOMI, accommodation nl, no face palsy, no dysarthria awake; not confused Psychiatric: A+Ox3, euthymic affect Orientation: alert, oriented x 3 and cooperative Lymphatic: no cervical or axillary lymphadenopathy Results & Data ([facility]) Vital Signs (Past 12 Hours) Vital Signs Temp Pulse Pulse Resp BP BP Pulse Ox 02/23/21 10:30 37 C 113 H 33 H 02/23/21 10:00 102 H 24 02/23/21 09:30 99 H 28 H 02/23/21 09:12 136 H 15 02/23/21 08:10 101 H 26 H 114/86 02/23/21 08:00 105 H 02/23/21 07:25 36.9 C 101 H 28 H 118/84 96 02/23/21 07:10 113 H 26 H 118/84 97 02/23/21 06:30 92 H 27 H 96 02/23/21 06:12 101 H 31 H 97 02/23/21 05:10 101 H 23 113/70 02/23/21 04:10 95 H 27 H 116/84 92 02/23/21 03:40 37.6 C H 107 H 18 120/80 94 02/23/21 03:30 106 H 23 02/23/21 03:00 93 H 22 02/23/21 02:30 93 H 24 02/23/21 02:12 108 H 22 02/23/21 01:10 114 H 16 115/82 02/23/21 00:10 102 H 21 106/73 96 02/22/21 23:56 37.0 C 94 H 94 H 24 101/66 101/66 95 Laboratory Results WBC 1.95, Hb 7.8, Hct 24, Plts 59, INR 12, Na 139, K 4.4, BUN 1, Cr 0.58 Diagnostic Findings CTAP with IV on 02/20: 1. Partial distention of the gallbladder is noted with suggested gallbladder sludge and mild wall thickening with equivocal pericholecystic stranding. Findings should be correlated with clinical presentation to exclude acute cholecystitis. 2. No biliary ductal dilation. 3. Hepatosplenomegaly with severe hepatic steatosis. 4. No bowel obstruction or bowel wall thickening. Normal appendix. MRCP 02/21/21: 1. No biliary ductal dilation. Cholelithiasis is seen without evidence of cholecystitis. 2. Hepatosplenomegaly.
--- NOTE | 2021-02-23 12:08 | Hospitalist Progress Note ---
Date of Service February 23, 2021 Assessment & Plan (1) Acute on chronic alcoholic liver disease: Plan: Amrik Mckeon is a 30 yo male with PMHx significant for severe alcohol use disorder, IV drug abuse, h/o fungemia, esophageal varices, peripheral neuropathy, folate deficiency, GERD and depression. He was admitted to [facility] on 02/20 for acute on chronic liver disease. He was transferred to the ICU on 02/21 and downgraded back to floor status on 02/22. Acute Encephalopathy due to Hepatic Encephalopathy and Delerium Tremens Increased agitation and confusion today. NH3 elevated at 34.0. Multifactorial: suspect both hepatic encephalopathy as well as developing delirium tremens. - started Lactulose 30mg PO QID - continue AWSS protocol with PRN Ativan as well as Librium taper - trend NH3 in the AM - patient may need to be upgraded back to ICU status for consideration of Ativan gtt - continue high-dose Thiamine and folate Acute on Chronic Alcoholic Liver Failure Significant alcohol abuse, ALT 583 and TBili 8.7 on admission --> alcoholic hepatitis. Gallbladder pathology per CT A/P (gallbladder sludge) is a chronic finding and patient does not have symptoms of cholecystitis. MRCP without signs of biliary obstruction. Hepatitis panel negative. - LFTs and TBili downtrending today - Discriminant score 17.8 --> 13.3 today - MELD score 22 --> 19.6% 3-month mortality - HSV1/2, CMV, EBV pending - GI consulted - appreciate recs - no steroids for now - not a candidate for transplant given alcohol abuse Pancytopenia Suspect chronic pancytopenia due to bone marrow suppression in setting of severe alcohol use disorder and malnutrition. Unlikely to be upper GI bleed given overall stability of H/H and no s/s bleeding, although patient has severe alcoholic hepatic steatosis and history of esophageal varices per previous EGD. Also cannot r/o hemolytic process witout further testing. - s/p 2unit pRBCs yesterday; further infusions for Hgb <7 - peripheral smear without signs of hemolysis and LDH 219 (WNL); haptoglobin pending - continue IVFs with NSS +20mEq KCl @100cc/hr - continue folate/vitamin B12 - GI consulted as stated above - will hold on EGD for now - continue Protonix 40mg IV BID Urinary Tract Infection Urinary symptoms for several days, dirty UA with positive nitrites, urine culture positive for marks-sensitive Klebsiella - continue Ceftriaxone 1g IV Q24H (day 3/7) - follow urine/blood cx Hypokalemia/Hypophosphatemia Suspect re-feeding syndrome in context of severe alcohol abuse and malnutrition. - repleted - continue to monitor daily Peripheral Neuropathy - continue home Gabapentin FEN/GI: low-sodium diet, IVFs DVT Prophylaxis: SCDs, hold chemoppx for now given elevated INR and possible GI bleed Code Status: Full code Disposition: med/surg with tele (in the ICU). (2) Acute anemia: (3) Alcoholism: (4) GERD (gastroesophageal reflux disease): (5) Depression: (6) IV drug abuse: (7) Alcohol abuse: (8) Tachycardia: (9) Lactic acidosis: (10) Leukopenia: (11) Thrombocytopenia: (12) Tobacco use disorder: (13) Hepatosplenomegaly: (14) Coagulopathy: (15) Weakness: Admission and Anticipated Discharge Date Admission Date: February 20, 2021 Supervising Physician Co-Signing Physician Notes Attending attestation Pt seen and examined in concert with Dr. Bethea. In agreement with the documented findings as noted in the resident documentation with any exceptions or additions as noted here. Earlier, worsening confusion and abnormal behavior which has recently improved. 6+ loose, watery incontinent bowel movements by 12p today without abdominal discomfort. On examination, S1/S2 nl RRR no MCG. CTAB. Abd NT/ND BS+ve. Worsening jaundice and scleral icterus as well. Altered mental status with concern for hepatic encephalopathy v. alcohol withdrawal- added lactulose, transitioned to rifaximin. Monitor NH3 for uptrending. Continue librium and ativan for AWSS consider ICU re-consult for ativan drip if agitation and symptoms indicate. Acute alcoholic hepatitis - GI consult - trend liver function testing, follow up send out labs Acute on chronic macrocytic anemia - likely folate 2/2 etOH, ,s/p 2UPRBC - continue protonix 40mg daily, trend daily H/H UTI - continue ceftriaxone Severe alcohol use disorder - AWSS with librium, supplement thiamine/folate, as above. FEN - replete PO4, K+ Else see resident documentation as noted. Subjective Patient received Ativan 4mg IV overnight for withdrawal. This morning he was A+Ox4 but reports worsening bilateral hand tremors and anxiety. Denies hallucinations or fever/chills. Denies chest pain, palpitations, SOB, cough, N/V, abdominal pain. Review of Systems Review of Systems: All systems reviewed & are unremarkable except as noted in HPI & below Physical Exam Physical Exam: General: A&Ox3. NAD. Cooperative. HEENT: Atraumatic, normocephalic. Scleral icterus present Pulm: CTAB A&P. -wheezes, -rales, -rhonchi. Symmetrical chest rise. No increase work of breathing. No respiratory distress. Cardiac: RRR, -mrg. Radial pulses intact and symmetrical. Abdominal: soft, non-tender, non-distended, BS x 4 Skin: face/arms jaundiced, skin warm/dry Neuro: bilateral hand tremors, no asterixis Results & Data Results & Data ([facility]) Vital Signs (Past 12 Hours) Vital Signs Temp Pulse Pulse Resp BP BP Pulse Ox 02/23/21 10:30 37 C 113 H 33 H 02/23/21 10:00 102 H 24 02/23/21 09:30 99 H 28 H 02/23/21 09:12 136 H 15 02/23/21 08:10 101 H 26 H 114/86 02/23/21 08:00 105 H 02/23/21 07:25 36.9 C 101 H 28 H 118/84 96 02/23/21 07:10 113 H 26 H 118/84 97 02/23/21 06:30 92 H 27 H 96 02/23/21 06:12 101 H 31 H 97 02/23/21 05:10 101 H 23 113/70 02/23/21 04:10 95 H 27 H 116/84 92 02/23/21 03:40 37.6 C H 107 H 18 120/80 94 02/23/21 03:30 106 H 23 02/23/21 03:00 93 H 22 02/23/21 02:30 93 H 24 02/23/21 02:12 108 H 22 02/23/21 01:10 114 H 16 115/82 02/23/21 00:10 102 H 21 106/73 96 Resident Activity Tracking Resident Involvement: Resident Care Provided Care Provided: Adult [facility] Medicine
[2021-02-23] MEDS ORDERED: LACTULOSE SYRUP 30 GM/45 ML UDP PO SCH (14:00)
[2021-02-23] MEDS: LACTULOSE SYRUP 30 GM/45 ML UDP PO SCH ×2 (17:31→19:54)
[2021-02-23] MEDS: rifAXIMin 550 MG TABLET PO SCH (19:54)
[2021-02-24] MEDS: NSS + 20MEQ KCL 20 MEQ/1,000 ML BAG IV SCH ×3 (01:21→21:50)
[2021-02-24 06:13] LABS: Hematocrit (blood only) 24.9 % (42-52); Hemoglobin 8.1 g/dL (14.0-18.0); Mean Corpuscular Hemoglobin 31.8 pg (25-34); Mean Corpuscular Hgb Conc 32.5 g/dL (32-36); Mean Corpuscular Volume 97.6 fL (80-100); RDW Coefficient of Variation 17.4 % (11.5-14.5); RDW Standard Deviation 61.8 fL (36.4-46.3); Red Blood Count 2.55 M/uL (4.7-6.1); White Blood Count 1.56 K/uL (4.8-10.8)
[2021-02-24 06:22] LABS: INR 1.1 (0.9-1.1); Prothrombin Time 11.4 Seconds (9.0-12.0)
[2021-02-24 06:35] LABS: Mean Platelet Volume 10.5 fL (7.4-10.4); Platelet Count 73 K/uL (130-400)
[2021-02-24 06:48] LABS: Basophils # (auto) 0.01 K/uL (0-0.2); Basophils % (auto) 0.6 %; Eosinophils # (auto) 0.01 K/uL (0-0.5); Eosinophils % (auto) 0.6 %; Immature Granulocytes # (auto) 0.01 K/uL (0.00-0.02); Immature Granulocytes % (auto) 0.6 %; Lymphocytes # (auto) 0.49 K/uL (1.2-3.4); Lymphocytes % (auto) 31.4 %; Monocytes # (auto) 0.11 K/uL (0.11-0.59); Monocytes % (auto) 7.1 %; Neutrophils # (auto) 0.93 K/uL (1.4-6.5); Neutrophils % (auto) 59.7 %; RBC Morphology Unremarkable
[2021-02-24 07:01] LABS: Alanine Aminotransferase 41 U/L (12-78); Albumin Globulin Ratio 0.3 (0.9-2); Albumin Level 1.6 gm/dl (3.4-5.0); Alkaline Phosphatase 342 U/L (45-117); Aspartate Aminotransferase 222 U/L (15-37); Bilirubin Direct 9.9 mg/dl (0-0.2); Bilirubin,Total 12.4 mg/dl (0.2-1); Blood Urea Nitrogen < 1 mg/dl (7-18); Calcium 8.6 mg/dl (8.5-10.1); Carbon Dioxide 23 mmol/L (21-32); Chloride 110 mmol/L (98-107); Creatinine Clr Calc Pharmacy 186.3 ml/min; Est GFR (African American) > 150.0 ml/min; Est GFR (Non-African American) 142.1 ml/min; Globulin 5.1 gm/dl (2.5-4.0); Glucose 90 mg/dl (70-99); Magnesium 1.8 mg/dl (1.8-2.4); Phosphorus 2.3 mg/dl (2.5-4.9); Potassium 3.9 mmol/L (3.5-5.1); Sodium 139 mmol/L (136-145); Total Protein 6.7 gm/dl (6.4-8.2)
[2021-02-24] MEDS ORDERED: POTASSIUM PHOS 3 MMOL/1 ML INFUSION IV STA (07:10)
[2021-02-24] MEDS ORDERED: POTASSIUM PHOSPHATE 12 MMOL in SODIUM CHLORIDE 0.9% 250 ML IV ONE (08:00)
[2021-02-24] MEDS: LORazepam 1 MG/2 ML VIAL IV PRN ×4 (08:08→17:06)
[2021-02-24] MEDS: MULTIVITAMIN TAB PO SCH (08:09)
[2021-02-24] MEDS: cefTRIAXone SODIUM 1,000 MG in DEXTROSE 5% 50 ML IV SCH (08:09)
[2021-02-24] MEDS: FOLIC ACID 1 MG TAB PO SCH (08:09)
[2021-02-24] MEDS: THIAMINE HCL 200 MG in SODIUM CHLORIDE 0.9% 50 ML IV SCH (08:09)
[2021-02-24] MEDS: PANTOprazole 40 MG in SYRINGE 0 ML IV SCH ×2 (08:09→21:51)
[2021-02-24] MEDS: rifAXIMin 550 MG TABLET PO SCH ×2 (08:10→21:50)
[2021-02-24] MEDS: VITAMIN B COMPLEX TAB PO SCH (08:10)
[2021-02-24] MEDS: GABAPENTIN 800 MG TAB PO SCH ×3 (08:10→21:51)
[2021-02-24 10:58] LABS: EBV Virus Capsid Ag IgG Ab >750.00 U/mL
--- NOTE | 2021-02-24 12:08 | Hospitalist Progress Note ---
Date of Service February 24, 2021 Assessment & Plan (1) Acute on chronic alcoholic liver disease: Plan: Amrik Mckeon is a 30 yo male with PMHx significant for severe alcohol use disorder, IV drug abuse, h/o fungemia, esophageal varices, peripheral neuropathy, folate deficiency, GERD and depression. He was admitted to [facility] on 02/20 for acute on chronic liver disease. He was transferred to the ICU on 02/21 and downgraded back to floor status on 02/22. Acute Encephalopathy due to Hepatic Encephalopathy and Delerium Tremens, resolving Increased agitation and confusion yesterday. NH3 elevated at 34.0. Multifactorial: suspect both hepatic encephalopathy as well as developing delirium tremens. - patient alert/oriented without AMS overnight and today, after Rifaximin started - NH3 34.0 --> 11.0 today - continue Rifaximin 550mg PO BID for now - continue AWSS protocol with PRN Ativan as well as Librium taper - continue high-dose Thiamine and folate - patient counseled on inpatient drug/alcohol rehab; the patient would like to speak with CM more about options - CM consult placed Acute on Chronic Alcoholic Liver Failure Significant alcohol abuse, ALT 583 and TBili 8.7 on admission --> alcoholic hepatitis. Additionally, EBV IgM/antigen positive; this is likely contributing to acute exacerbation as well, and may be an indication of good prognosis over time. Gallbladder pathology per CT A/P (gallbladder sludge) is a chronic finding and patient does not have symptoms of cholecystitis. MRCP without signs of biliary obstruction. Hepatitis panel negative. - LFTs and TBili continuing to downtrend today - Discriminant score 13.3 --> 9.6 today - MELD score improved since hospitalization: 22 --> 17 today; 6% 3-month mortality - no treatment required for EBV positive patient without symptoms of mononucleosis - HSV1/2, CMV, pending - GI consulted - appreciate recs - no steroids for now - not a candidate for transplant given alcohol abuse Pancytopenia, EBV infection, Hepatosplenomegaly Suspect chronic pancytopenia due to bone marrow suppression in setting of severe alcohol use disorder and malnutrition. EBV infection may also be contributing, and likely to be contributing to hepatosplenomegaly as well. Unlikely to be upper GI bleed given overall stability of H/H and no s/s bleeding, although patient has severe alcoholic hepatic steatosis and history of esophageal varices per previous EGD. - s/p 2unit pRBCs on 02/22; damian give further infusions for Hgb <7 - peripheral smear without signs of hemolysis and LDH 219 (WNL); haptoglobin pending - continue IVFs with NSS +20mEq KCl @100cc/hr - continue folate/vitamin B12 - GI consulted as stated above - will hold on EGD for now - continue Protonix 40mg IV BID Urinary Tract Infection Urinary symptoms for several days, dirty UA with positive nitrites, urine culture positive for marks-sensitive Klebsiella. - Blood cx negative after 48 hours - symptoms resolved with abx - continue Ceftriaxone 1g IV Q24H (day 08/25) Hypokalemia/Hypophosphatemia Suspect re-feeding syndrome in context of severe alcohol abuse and malnutrition. - repleted - continue to monitor daily Peripheral Neuropathy - continue home Gabapentin FEN/GI: low-sodium diet, IVFs DVT Prophylaxis: SCDs, chemoppx not indicated in this young/mobile patient with thrombocytopenia and without evidence of cirrhosis Code Status: Full code Disposition: med/surg with tele (in the ICU), CM to assist with inpatient drug/alcohol rehab options (2) Acute anemia: (3) Alcoholism: (4) GERD (gastroesophageal reflux disease): (5) Depression: (6) IV drug abuse: (7) Alcohol abuse: (8) Tachycardia: (9) Lactic acidosis: (10) Leukopenia: (11) Thrombocytopenia: (12) Tobacco use disorder: (13) Hepatosplenomegaly: (14) Coagulopathy: (15) Weakness: Admission and Anticipated Discharge Date Admission Date: February 20, 2021 Supervising Physician Co-Signing Physician Notes Attending attestation Pt seen and examined in concert with Dr. Bethea. In agreement with the documented findings as noted in the resident documentation with any exceptions or additions as noted here. Appearing less agitated today, more conversant and focused. His current preferred discharge plan is home with family care with consideration of further rehab based on same. Per discussion, would likely return to etOH use. On examination, S1/S2 nl RRR no MCG. CTAB. Abd NT/ND BS+ve. Stable jaundice and scleral icterus. Altered mental status with concern for hepatic encephalopathy v. alcohol withdrawal - d/c'd lactulose, continue rifaximin. Continue librium and ativan for AWSS consider ICU re-consult for ativan drip if agitation and symptoms indicate. Acute alcoholic hepatitis compounded with EBV infection - GI consult - trend liver function testing, follow up send out labs Acute on chronic macrocytic anemia w/ pancytopenia in the setting of EBV - continue protonix 40mg daily, trend daily H/H UTI - continue ceftriaxone Severe alcohol use disorder - STRONGLY encourage inpatient rehab following discharge with high likelihood of relapse and potential for severe hepatitis following Else see resident documentation as noted. Subjective Patient received Ativan 3mg IV overnight for withdrawal. This morning he was A+Ox4 and reports significantly improved bilateral hand tremors and anxiety. Denies hallucinations or fever/chills. Denies chest pain, palpitations, SOB, cough, N/V, abdominal pain. Review of Systems Review of Systems: All systems reviewed & are unremarkable except as noted in HPI & below Physical Exam Physical Exam: General: A&Ox4. NAD. Cooperative. HEENT: Atraumatic, normocephalic. Scleral icterus present Pulm: CTAB A&P. -wheezes, -rales, -rhonchi. Symmetrical chest rise. No increase work of breathing. No respiratory distress. Cardiac: RRR, -mrg. Radial pulses intact and symmetrical. Abdominal: soft, non-tender, non-distended, BS x 4 Skin: face/arms jaundiced, skin warm/dry Neuro: mild bilateral hand tremors, no asterixis Results & Data Results & Data ([facility]) Vital Signs (Past 12 Hours) Vital Signs Temp Pulse Resp BP Pulse Ox 02/24/21 11:09 36.9 C 94 H 20 99/79 L 97 02/24/21 07:57 37.0 C 92 H 28 H 113/77 96 Resident Activity Tracking Resident Involvement: Resident Care Provided Care Provided: Adult Hospital Medicine
--- NOTE | 2021-02-24 13:42 | Gastroenterology Progress Note ---
Date of Service February 24, 2021 Assessment & Plan (1) Alcoholic hepatitis: Plan: Confusion from alcohol withdrawal vs. hepatic encephalopathy, but recommend continuing xifaxin. DF is low, recommend against steroids. There is no hx of cirrhosis or suggestion of cirrhosis on imaging though he has had small esophageal varices in the past (on EGD). Not a candidate for liver transplant eval at this time because continuing with substance abuse. LFTs are improving and Hb/Hct are stable w/o any gross GI bleeding. Recheck Hb/Hct, LFTs, PT/INR periodically - every 3-4 days during hospitalization. No GI contraindication to a regular consistency low salt diet. Complete, permanent alcohol cessation. GI will sign off. Please notify if new/worsening GI issues. . (2) Acute Sonido Segovia virus (EBV) infection: Plan: Certainly, this is contributing to his hepatitis and can cause splenomegaly but not noted on exam or imaging. Supportive care with IV fluids, po nutrition. Admission and Anticipated Discharge Date Admission Date: February 20, 2021 Supervising Physician Co-Signing Physician Notes Attending attestation I have seen, examined this patient, and agree with the findings and above by our mid-level provider LORENZO Mai: - Patient with EBV, would explain elevated liver enzymes. Would continue rifaximin and lactulose, no more than 3 balance daily, supportive care with PT, aggressive nutrition, and should have inpatient alcohol rehab. Subjective 30 yr old male pt. Last drink the day of admission.Admits to suboxone IV abuse. Hb 9.5-> 8.1 today after 2 units RBCs on 02/21. Passing brown BMs. No gross GI bleeding. T Bili 8.7 on arrival ->15.5 max 2 days ago -> 12 today. Transaminases also improving He is seen and examined while resting in bed in the ICU. He is awake, alert, but has some confusion and is not able to answer questions with thoughtful, meaningful answers. HR 100- 110, no hypotension, no tremor today. No asterixes. Eating small amounts of regular consistency diet. Most recent prior EGD in May for nausea/vomiting with small varies, gastritis. Review of Systems Review of Systems: ROS: Gen: + weakness; no fevers Eyes: No eye redness, or pain, no recent vision changes Resp: No SOB, no cough Cardio: No palpitations/irregular beats, no chest pain GI: No abdominal pain, no nausea/vomiting : Denies pain on urination Skin: No jaundice, itching or new rashes Physical Exam Constitutional: well developed, + ill appearing, + thin and cooperative Eyes: + icterus ENMT: external ear and nose normal, oropharynx normal Neck: trachea midline, no thyromegaly Respiratory: normal respiratory effort, lungs clear to auscultation Cardiovascular: RRR, no murmur, no edema Gastrointestinal (Abdomen): Inspection/Auscultation: abdomen normal to inspection and + hypoactive bowel sounds; abdomen not distended liver mildly tender, palpable to 3 finger widths below the right costal border. Skin: no rashes, warm and dry +++ Jaundice Neurologic: PERRL, EOMI, accommodation nl, no face palsy, no dysarthria awake; not confused Psychiatric: Orientation: alert, oriented x 3 and cooperative Lymphatic: no cervical or axillary lymphadenopathy Results & Data ([facility]) Vital Signs (Past 12 Hours) Vital Signs Temp Pulse Resp BP Pulse Ox 02/24/21 11:09 36.9 C 94 H 20 99/79 L 97 02/24/21 07:57 37.0 C 92 H 28 H 113/77 96 Laboratory Results WBC 1.56, Hb 8.1, Hct 24.9, Plts 73, INR 1.1, Na 138, K 3.8, Cl 110, CO2 23, BUN 1, Cr 0.5, glucose 90. T Bili 12, AST 222, ALT 41, Alk Phos 342. Diagnostic Findings MRCP 02/21/21: 1. No biliary ductal dilation. Cholelithiasis is seen without evidence of cholecystitis. 2. Hepatosplenomegaly. CTAPw IV contrast 02/20/21: 1. Partial distention of the gallbladder is noted with suggested gallbladder sludge and mild wall thickening with equivocal pericholecystic stranding. Findings should be correlated with clinical presentation to exclude acute cholecystitis. 2. No biliary ductal dilation. 3. Hepatosplenomegaly with severe hepatic steatosis. 4. No bowel obstruction or bowel wall thickening. Normal appendix.
[2021-02-24] MEDS: chlordiazePOXIDE HCl 5 MG CAP PO SCH (21:49)
[2021-02-25] MEDS: LORazepam 1 MG/2 ML VIAL IV PRN ×3 (03:53→21:34)
[2021-02-25 05:30] LABS: Alanine Aminotransferase 44 U/L (12-78); Albumin Globulin Ratio 0.3 (0.9-2); Albumin Level 1.7 gm/dl (3.4-5.0); Alkaline Phosphatase 334 U/L (45-117); Aspartate Aminotransferase 218 U/L (15-37); Bilirubin,Total 13.3 mg/dl (0.2-1); Blood Urea Nitrogen < 1 mg/dl (7-18); Calcium 8.8 mg/dl (8.5-10.1); Carbon Dioxide 22 mmol/L (21-32); Chloride 110 mmol/L (98-107); Creatinine Clr Calc Pharmacy 187.2 ml/min; Est GFR (African American) > 150.0 ml/min; Est GFR (Non-African American) 138.9 ml/min; Globulin 5.3 gm/dl (2.5-4.0); Glucose 89 mg/dl (70-99); Magnesium 1.9 mg/dl (1.8-2.4); Phosphorus 3.3 mg/dl (2.5-4.9); Potassium 3.9 mmol/L (3.5-5.1); Sodium 139 mmol/L (136-145)
[2021-02-25 05:52] LABS: Hematocrit (blood only) 27.3 % (42-52); Hemoglobin 8.8 g/dL (14.0-18.0); Mean Corpuscular Hemoglobin 32.6 pg (25-34); Mean Corpuscular Volume 101.1 fL (80-100); RDW Coefficient of Variation 17.6 % (11.5-14.5); RDW Standard Deviation 63.9 fL (36.4-46.3); White Blood Count 1.58 K/uL (4.8-10.8)
[2021-02-25 06:02] LABS: INR 1.1 (0.9-1.1); Prothrombin Time 11.2 Seconds (9.0-12.0)
[2021-02-25 06:14] LABS: Mean Corpuscular Hgb Conc 32.2 g/dL (32-36); Platelet Count 82 K/uL (130-400)
[2021-02-25 06:25] LABS: Basophils # (auto) 0.01 K/uL (0-0.2); Basophils % (auto) 0.6 %; Eosinophils # (auto) 0.01 K/uL (0-0.5); Eosinophils % (auto) 0.6 %; Giant Platelets 1+; Immature Granulocytes # (auto) 0.02 K/uL (0.00-0.02); Immature Granulocytes % (auto) 1.3 %; Lymphocytes # (auto) 0.41 K/uL (1.2-3.4); Lymphocytes % (auto) 25.9 %; Monocytes # (auto) 0.16 K/uL (0.11-0.59); Monocytes % (auto) 10.1 %; Neutrophils # (auto) 0.97 K/uL (1.4-6.5); Neutrophils % (auto) 61.5 %
[2021-02-25] MEDS: cefTRIAXone SODIUM 1,000 MG in DEXTROSE 5% 50 ML IV SCH (07:35)
[2021-02-25] MEDS: NSS + 20MEQ KCL 20 MEQ/1,000 ML BAG IV SCH ×2 (07:35→19:26)
[2021-02-25] MEDS: PANTOprazole 40 MG in SYRINGE 0 ML IV SCH (07:41)
[2021-02-25] MEDS: THIAMINE HCL 200 MG in SODIUM CHLORIDE 0.9% 50 ML IV SCH (07:41)
[2021-02-25] MEDS: MULTIVITAMIN TAB PO SCH (07:43)
[2021-02-25] MEDS: GABAPENTIN 800 MG TAB PO SCH ×3 (07:43→19:34)
[2021-02-25] MEDS: FOLIC ACID 1 MG TAB PO SCH (07:43)
[2021-02-25] MEDS: rifAXIMin 550 MG TABLET PO SCH ×2 (07:43→19:34)
[2021-02-25] MEDS: VITAMIN B COMPLEX TAB PO SCH (07:44)
[2021-02-25] MEDS: chlordiazePOXIDE HCl 5 MG CAP PO SCH (07:50)
[2021-02-25 10:52] LABS: CMV IgG Antibody <0.60 U/mL; CMV IgM Antibody <30.00 AU/mL; HSV Type 1 DNA Not Detected (Not Detected); HSV Type 1&2 DNA Source Whole Blood; HSV Type 2 DNA Not Detected (Not Detected); Haptoglobin 46 mg/dL (43-212)
--- NOTE | 2021-02-25 12:54 | Hospitalist Progress Note ---
Date of Service February 25, 2021 Assessment & Plan (1) Acute on chronic alcoholic liver disease: Plan: Amrik Mckeon is a 30 yo male with PMHx significant for severe alcohol use disorder, IV drug abuse, h/o fungemia, esophageal varices, peripheral neuropathy, folate deficiency, GERD and depression. He was admitted to [facility] on 02/20 for acute on chronic liver disease. He was transferred to the ICU on 02/21 and downgraded back to floor status on 02/22. Acute Encephalopathy due to Hepatic Encephalopathy and Delerium Tremens, resolving Increased agitation and confusion likely multifactorial: suspect both hepatic encephalopathy as well as delirium tremens. Both are resolving over last several days. - patient alert/oriented without AMS overnight and today - continue Rifaximin 550mg PO BID for now - continue AWSS protocol with PRN Ativan - Librium taper finished today - continue high-dose Thiamine and folate - patient counseled on inpatient drug/alcohol rehab; the patient would like to speak with CM more about options - CM consult placed - pending Acute on Chronic Alcoholic Liver Failure Significant alcohol abuse, ALT 583 and TBili 8.7 on admission --> alcoholic hepatitis. Additionally, EBV IgM/antigen positive; this is likely contributing to acute exacerbation as well, and may be an indication of good prognosis over time. Gallbladder pathology per CT A/P (gallbladder sludge) is a chronic finding and patient does not have symptoms of cholecystitis. MRCP without signs of biliary obstruction. Hepatitis panel negative. - LFTs downtrending but TBili 12.4 --> 13.3 today - HSV1/2 and CMV negative - Discriminant ~10 - no indication for steroids - MELD score improved since hospitalization: 22 --> 17; 6% 3-month mortality - no treatment required for EBV positive patient without symptoms of mononucleo sis - GI consulted - appreciate recs - not a candidate for transplant given alcohol abuse Pancytopenia, EBV infection, Hepatosplenomegaly Suspect chronic pancytopenia due to bone marrow suppression in setting of severe alcohol use disorder and malnutrition. EBV infection may also be contributing, and likely to be contributing to hepatosplenomegaly as well. Unlikely to be upper GI bleed given overall stability of H/H and no s/s bleeding, although patient has severe alcoholic hepatic steatosis and history of esophageal varices per previous EGD. - s/p 2unit pRBCs on 02/22; damian give further infusions for Hgb <7 - peripheral smear and hemolysis labs unremarkable - continue IVFs with NSS +20mEq KCl @100cc/hr - continue folate/vitamin B12 - GI consulted as stated above - no EGD necessary - continue with Protonix 40mg PO daily Urinary Tract Infection, resolving Urinary symptoms for several days, dirty UA with positive nitrites, urine culture positive for marks-sensitive Klebsiella. - Blood cx negative - symptoms resolved with abx - Ceftriaxone transitioned to Cefdinir 300mg PO BID for total 10 days tx (day 09/27) Hypokalemia/Hypophosphatemia, resolving Suspect re-feeding syndrome in context of severe alcohol abuse and malnutrition. - repleted - continue to monitor daily Peripheral Neuropathy - continue home Gabapentin FEN/GI: low-sodium diet, IVFs DVT Prophylaxis: SCDs, chemoppx not indicated in this young/mobile patient with thrombocytopenia and without evidence of cirrhosis Code Status: Full code Disposition: med/surg with tele (in the ICU), CM to assist with inpatient drug/alcohol rehab options (2) Acute anemia: (3) Alcoholism: (4) GERD (gastroesophageal reflux disease): (5) Depression: (6) IV drug abuse: (7) Alcohol abuse: (8) Tachycardia: (9) Lactic acidosis: (10) Leukopenia: (11) Thrombocytopenia: (12) Tobacco use disorder: (13) Hepatosplenomegaly: (14) Coagulopathy: (15) Weakness: Admission and Anticipated Discharge Date Admission Date: February 20, 2021 Supervising Physician Co-Signing Physician Notes I saw the patient concurrent with the resident physician and confirmed stover porti ons of the history and physical examination. I agree with the impression and plan as noted in the resident documentation Upon our exam, he is sleeping but easily awakens. He has no complaints. We d iscussed the importance of inpatient rehabilitation as complete alcohol abstinence is critical to his survival. Exam 111/73, 106, 20, 37.3, 95% on room air Jaundiced with scleral icterus Heart regular Respirations nonlabored Data White blood cell count 1.58, hemoglobin 8.8, platelet count 82 Sodium 139, potassium 3.9, BUN less than 1, creatinine 0.55 Total bilirubin 13.3, AST 218, ALT 44, alkaline phosphatase 334. Impression and Plan Acute encephalopathy secondary to hepatic encephalopathy and alcohol withdrawal, resolved Acute alcoholic hepatitis with subacute EBV infection Acute on chronic pancytopenia in the setting of chronic alcohol use and subacute EBV Severe alcohol use disorder Cannot emphasize enough that he needs to completely and permanently abstain from alcohol. He has voiced that if he would have an opportunity to drink at this point, he would. Appreciate his honesty but given how he feels, inpatient therapy would provide him the best chance at recovery. If he continues to drink, I did let him know that he will likely from liver failure. Else see resident documentation as noted. Physical Exam Physical Exam: General: A&Ox4. NAD. Cooperative. HEENT: Atraumatic, normocephalic. Scleral icterus present Pulm: CTAB A&P. -wheezes, -rales, -rhonchi. Symmetrical chest rise. No increase work of breathing. No respiratory distress. Cardiac: RRR, -mrg. Radial pulses intact and symmetrical. Abdominal: soft, non-tender, non-distended, BS x 4 Skin: face/arms jaundiced, skin warm/dry Neuro: mild bilateral hand tremors, no asterixis Results & Data Results & Data ([facility]) Vital Signs (Past 12 Hours) Vital Signs Temp Pulse Pulse Resp BP BP Pulse Ox 02/25/21 12:02 37.3 C 106 H 20 111/73 95 02/25/21 09:00 99 H 18 02/25/21 08:00 37 C 100 H 27 H 120/93 98 02/25/21 07:00 88 27 H 02/25/21 05:47 36.5 C 89 24 115/80 02/25/21 01:10 83 Resident Activity Tracking Resident Involvement: Resident Care Provided Care Provided: Adult Hospital Medicine
[2021-02-25] MEDS: LORazepam 2 MG/4 ML VIAL IV PRN (19:32)
[2021-02-26] MEDS: LORazepam 1 MG/2 ML VIAL IV PRN ×2 (01:40→08:12)
[2021-02-26] MEDS ORDERED: ACETAMINOPHEN 500 MG TAB PO PRN (04:19)
[2021-02-26] MEDS ORDERED: ACETAMINOPHEN 325 MG TAB PO PRN (05:09)
[2021-02-26] MEDS: NSS + 20MEQ KCL 20 MEQ/1,000 ML BAG IV SCH ×2 (05:53→14:30)
[2021-02-26] MEDS: FOLIC ACID 1 MG TAB PO SCH (07:53)
[2021-02-26] MEDS: GABAPENTIN 800 MG TAB PO SCH ×2 (07:53→14:30)
[2021-02-26] MEDS: VITAMIN B COMPLEX TAB PO SCH (07:54)
[2021-02-26] MEDS: MULTIVITAMIN TAB PO SCH (07:54)
[2021-02-26] MEDS: THIAMINE HCL 200 MG in SODIUM CHLORIDE 0.9% 50 ML IV SCH (07:54)
[2021-02-26] MEDS: rifAXIMin 550 MG TABLET PO SCH (07:54)
--- NOTE | 2021-02-26 07:56 | Hospitalist Progress Note ---
Date of Service February 26, 2021 Assessment & Plan Admission and Anticipated Discharge Date Admission Date: February 20, 2021 Results & Data Results & Data ([facility]) Vital Signs (Past 12 Hours) Vital Signs Temp Pulse Pulse Pulse Resp BP BP 02/26/21 06:20 100 H 02/26/21 03:26 37 C 90 22 106/70 02/26/21 01:22 36.9 C 94 H 22 103/68 02/25/21 22:24 108 H 02/25/21 22:00 36.9 C 93 H 18 107/68 02/25/21 20:57 105 H Pulse Ox 02/26/21 06:20 02/26/21 03:26 95 02/26/21 01:22 95 02/25/21 22:24 02/25/21 22:00 95 02/25/21 20:57
[2021-02-26 09:00] LABS: Basophils # (auto) 0.01 K/uL (0-0.2); Basophils % (auto) 0.5 %; Eosinophils # (auto) 0.01 K/uL (0-0.5); Eosinophils % (auto) 0.5 %; Hematocrit (blood only) 27.5 % (42-52); Hemoglobin 8.7 g/dL (14.0-18.0); Immature Granulocytes # (auto) 0.01 K/uL (0.00-0.02); Immature Granulocytes % (auto) 0.5 %; Lymphocytes # (auto) 0.56 K/uL (1.2-3.4); Lymphocytes % (auto) 27.3 %; Mean Corpuscular Hemoglobin 32.1 pg (25-34); Mean Corpuscular Hgb Conc 31.6 g/dL (32-36); Mean Corpuscular Volume 101.5 fL (80-100); Monocytes # (auto) 0.23 K/uL (0.11-0.59); Monocytes % (auto) 11.2 %; Neutrophils # (auto) 1.23 K/uL (1.4-6.5); Platelet Count 101 K/uL (130-400); RDW Coefficient of Variation 17.7 % (11.5-14.5); RDW Standard Deviation 65.5 fL (36.4-46.3); Red Blood Count 2.71 M/uL (4.7-6.1); White Blood Count 2.05 K/uL (4.8-10.8)
[2021-02-26] MEDS ORDERED: CEFDINIR 300 MG CAP PO SCH (09:00)
[2021-02-26] MEDS ORDERED: PANTOprazole 40 MG TAB PO SCH (09:00)
[2021-02-26 09:35] LABS: Alanine Aminotransferase 41 U/L (12-78); Albumin Globulin Ratio 0.3 (0.9-2); Albumin Level 1.8 gm/dl (3.4-5.0); Alkaline Phosphatase 273 U/L (45-117); Aspartate Aminotransferase 210 U/L (15-37); Bilirubin,Total 14.6 mg/dl (0.2-1); Blood Urea Nitrogen < 1 mg/dl (7-18); Calcium 8.9 mg/dl (8.5-10.1); Carbon Dioxide 20 mmol/L (21-32); Chloride 111 mmol/L (98-107); Creatinine Clr Calc Pharmacy 180.1 ml/min; Est GFR (African American) > 150.0 ml/min; Est GFR (Non-African American) 135.9 ml/min; Globulin 5.2 gm/dl (2.5-4.0); Glucose 87 mg/dl (70-99); Phosphorus 3.4 mg/dl (2.5-4.9); Potassium 3.6 mmol/L (3.5-5.1); Sodium 139 mmol/L (136-145)
--- NOTE | 2021-02-26 15:06 | Discharge Summary ---
Date of Service February 26, 2021 Admission HPI Per Admitting Provider The patient is a 30-year-old male with a past medical history of alcohol abuse, alcoholism, [place] [employer], continuous IV drug abuse, esophageal varices positive blood cultures, peripheral neuropathy, folate deficiency, GERD, depression and bilateral lower extremity pain. He presents to the emergency department with complaint of yellowing of skin, generalized weakness and confusion over the past several days. He continues to have daily alcohol use, and alcohol level upon admission was 293.9. Other significant laboratory abnormalities: Hemoglobin 9.5, hematocrit 30.0, platelets 104, sodium 134, potassium 3.2, lactic acid 4.3, INR 1.4, albumin 2.0, AST 583, ALT 73, alkaline phosphatase 557, total bilirubin 8.7. COVID-19 test negative in the ED CT scan of abdomen and pelvis: Abundant stool throughout the colon no appendicitis or diverticulitis. No free fluid. Liver is a large 28 x 2 cm in length and diffusely hypodense/fatty. Probable gallbladder sludge. No calcified gallstones. No biliary ductal dilatation. Pancreas is unremarkable. Spleen is enlarged at 14.[address] scan of the head was normal Principal Diagnosis Encephalopathy due to acute on chronic liver failure and delirium tremens Discharge Exam GENERAL: A&Ox3. NAD. HEENT: PERRL, EOMI. Moist mucous membranes. CHEST/LUNGS: CTAB A/P. No crackles, wheezes, rales, rhonchi. HEART: RRR. No m/g/r. No carotid bruits. ABDOMEN: NT/ND, soft. BS+ x4 EXTREMITIES: No cyanosis, no clubbing, no edema SKIN: Jaundiced. Warm and dry. No rashes or lesions. PSYCHIATRIC: Euthymic affect, no SI, no pressured speech, no hallucinations. NEUROLOGIC: No FND. CN II-XII grossly intact. Discharge Data Allergies Allergy/AdvReac Type Severity Reaction Status Date / Time No Known Allergies Allergy Verified 02/20/21 21:05 Consultations 02/20/21 23:25 ED Decision to Admit Stat 02/21/21 02:47 Consult Gastroenterology Routine 02/21/21 09:02 Consult Vp Scientific Affairs Stat Ordered Studies 02/20/21 22:53 CT abd pelvis IV con only Stat 02/20/21 22:55 CT head/brain wo con Stat 02/21/21 03:40 MR MRCP Routine 02/22/21 19:09 CT head/brain wo con Stat Hospital Course (1) Acute on chronic alcoholic liver disease: Amrik Mckeon is a 30 yo male with PMHx significant for severe alcohol use disorder, IV drug abuse, h/o fungemia, esophageal varices, peripheral neuropathy, folate deficiency, GERD and depression. He was admitted to [facility] on 02/20 for acute on chronic liver disease. He was transferred to the ICU on 02/21 and downgraded back to floor status on 02/22. Acute Encephalopathy due to Hepatic Encephalopathy and Delirium Tremens, resolving Increased agitation and confusion likely multifactorial: suspect both hepatic encephalopathy as well as delirium tremens. Both are resolving over last several days. - patient alert/oriented without AMS overnight and today - Received Rifaximin 550mg PO BID while admitted -- will DC with lactulose TID for avoidance of hepatic encephalopathy as outpatient - Was on AWSS protocol with PRN Ativan - Librium taper finished 02/25 - continue Thiamine and folate supplementation - patient counseled on inpatient drug/alcohol rehab -- inpatient rehab directly from hospital was strongly recommended ultimately decided for DC home with plans to check into rehab at later date, per patient - With patient's permission updated father on day of DC and strongly recommended inpatient rehab -- father aware and in agreement Acute on Chronic Alcoholic Liver Failure Significant alcohol abuse, ALT 583 and TBili 8.7 on admission --> alcoholic hepatitis. Additionally, EBV IgM/antigen positive; this is likely contributing to acute exacerbation as well, and may be an indication of good prognosis over time. Gallbladder pathology per CT A/P (gallbladder sludge) is a chronic finding and patient does not have symptoms of cholecystitis. MRCP without signs of biliary obstruction. Hepatitis panel negative. - LFTs downtrending but TBili continued to be elevated, though no RUQ symptoms as above - HSV1/2 and CMV negative - Discriminant ~10 - no indication for steroids - MELD score improved since hospitalization: 22 --> 17; 6% 3-month mortality - no treatment required for EBV positive patient without symptoms of mononucleosis - GI consulted - not a candidate for transplant given alcohol abuse - Recommend close outpatient F/U with PCP, labs within 3-4 days of DC - Updated father on this Pancytopenia, EBV infection, Hepatosplenomegaly Suspect chronic pancytopenia due to bone marrow suppression in setting of severe alcohol use disorder and malnutrition. EBV infection may also be contributing, and likely to be contributing to hepatosplenomegaly as well. Unlikely to be upper GI bleed given overall stability of H/H and no s/s bleeding, although patient has severe alcoholic hepatic steatosis and history of esophageal varices per previous EGD. - s/p 2unit pRBCs on 02/22; damian give further infusions for Hgb <7 - peripheral smear and hemolysis labs unremarkable - continue folate/vitamin B12 - GI consulted as stated above - no EGD necessary - continue with Protonix 40mg PO daily Urinary Tract Infection, resolving Urinary symptoms for several days, dirty UA with positive nitrites, urine culture positive for marks-sensitive Klebsiella. - Blood cx negative - symptoms resolved with abx - Ceftriaxone transitioned to Cefdinir 300mg PO BID for total 10 days tx (day 10/28) - Finish tx with cefdinir at home Hypokalemia/Hypophosphatemia - resolved Suspect re-feeding syndrome in context of severe alcohol abuse and malnutrition. - repleted - Recommend repeat labs with PCP as above Peripheral Neuropathy - continue home Gabapentin FEN/GI: low-sodium diet Disposition: Home - Self Care. Inpatient rehab recommended but patient electing for DC home (2) Acute anemia: (3) Alcoholism: (4) GERD (gastroesophageal reflux disease): (5) Depression: (6) IV drug abuse: (7) Alcohol abuse: (8) Tachycardia: (9) Lactic acidosis: (10) Leukopenia: (11) Thrombocytopenia: (12) Tobacco use disorder: (13) Hepatosplenomegaly: (14) Coagulopathy: (15) Weakness: Total Time Total Time Spent Total Time Spent (In Minutes): 25 minutes Discharge Plan Discharge Items Patient Disposition: Home - Self-Care Reason For Visit: JAUNDICE, WEAKNESS Discharge Diagnosis: Acute on chronic liver disease Activity: Per Instructions section Non-emergency contact: Primary Care Provider Call non-emergency contact if: your symptoms worsen Follow-up/Referrals: Filiberto Burt MD [Primary Care Provider] - Diet: Regular and Low Sodium (2gm) Addtl Attending Provider Instructions: You were admitted to Center due to weakness, confusion, and jaundice. You were found to be acutely encephalopathic due to your chronic liver failure, and likely alcohol withdrawal. You improved with monitoring of your condition, as well as a medication called rifaximin twice daily. You also received as needed Ativan and a Librium taper to avoid seizures from alcohol withdrawal. Gastroenterology was consulted, who recommended permanent alcohol cessation. Ultimately, there is no curative treatment for your liver failure. The only option for improvement would be liver transplant, which is unfortunately not an option with your active alcohol use disorder. If you were to stop using alcohol or any other illegal substances, liver transplant might become an option for you in the future. As such, we strongly recommend inpatient rehabilitation for your condition. However, per your preference, we will discharge you home as you prefer to check yourself into rehabilitation. We will prescribe a medication called lactulose, which we recommend you take 3 times daily to avoid further confusion/altered mental status due to your liver failure. As above, we strongly recommend inpatient rehabilitation and immediate alcohol/substance use cessation. You should also continue to take cefdinir 300 mg twice daily for the next 4 days starting tonight for treatment of your urinary tract infection. We recommend you follow up with your primary care provider for discussion of your hospitalization and repeat laboratory tests. Pending Studies at Discharge: No Stand-Alone Forms: My [facility], Smoking Cessation Medications and DC Order Prescriptions: New cefdinir 300 mg Capsule 300 mg PO BID Qty: 9 RF: 0 lactulose 10 gram/15 mL (15 mL) solution 20 g PO TID 14 Days Qty: 1260 RF: 0 pantoprazole [Protonix] 40 mg tablet,delayed release (DR/EC) 40 mg PO DAILY Qty: 30 RF: 0 Continued gabapentin 800 mg tablet 800 mg PO TID Qty: 90 RF: 2 thiamine HCl (vitamin B1) 100 mg tablet 100 mg PO DAILY Qty: 90 RF: 3 multivitamin Tablet 1 tab PO DAILY Qty: 90 RF: 3 sucralfate 1 gram tablet 1 g PO QID PRN (Reason: ABD PAIN) RF: 0 omeprazole 40 mg capsule,delayed release(DR/EC) 40 mg PO DAILY Qty: 30 RF: 5 folic acid 1 mg tablet 1 mg PO DAILY Qty: 90 RF: 3 vitamin B complex Capsule 1 cap PO DAILY RF: 0 potassium gluconate 595 mg (99 mg) Tablet 595 mg PO DAILY RF: 0 clonazepam 0.5 mg Tablet 0.5 mg PO DAILY PRN (Reason: Anxiety) RF: 0 Discharge Orders: Discharge Order (Routine); Ordered 02/26/21 Ordered By: Minesh BellamyKady Admission Data Admit Date/Time: 02/20/21 23:58 Attending Provider: Bruce Garza Admit Provider: Bruce Garza Primary Care Provider: Filiberto Burt. Other Providers: Yobani Waldron ; Jean Conway ; Guille Gutiérrez Other Interventions: Discharge Summary Assessment (RN) Last Done: 02/26/21 15:09 Supervising Physician Co-Signing Physician Notes I saw the patient concurrent with the resident physician and confirmed stover portions of the history and physical examination. I agree with the impression and plan as noted in the resident documentation He is interested in going home today. Again discussed the importance of inpatient alcohol rehabilitation given his previous failures with trials of outpatient. He does have a plan returning home; his brother be with him; he tells me that all alcohol has been removed from the home. If he were to pursue inpatient redilatation, he would look at [facility] as he has been there previously. Exam 1.68, 94, 18, 95% on room air Jaundiced with scleral icterus Heart regular Respirations nonlabored Data RBC 2.05, hemoglobin 8.7, platelet count 101. These numbers are all trending up. Sodium 139, potassium 3.6, BUN 1, creatinine 0.58. These numbers are stable. Total bilirubin is 14.6, this has been trending up. AST 210, alkaline phosphatase 273. These are both downtrending ALT 41, this is stable. Impression and Plan Acute encephalopathy secondary to hepatic encephalopathy and alcohol withdrawal, resolved Acute alcoholic hepatitis with subacute EBV infection Acute on chronic pancytopenia in the setting of chronic alcohol use and subacute EBV Severe alcohol use disorder He does not wish to for a direct admission to an inpatient facility. Again discussed that this would likely be his best chance at complete and lasting alcohol cessation. He has a plan in place at home as described above. Recommend repeat CBC and CMP early next week to continue to trend. His Xifaxan would likely need a prior authorization, so as such we will switch to lactulose Instructions to complete full course of cefdinir for UTI Else see resident documentation as noted. Resident Activity Tracking Resident Involvement: Resident Care Provided Care Provided: Adult [facility] Medicine
== END 2021-02-26 16:25 | disposition home or self-care (01) | DRG 433 ==
LOC: ED 20:19 → 1E 23:58 → SUATTDRO 23:58 → 1E 02-21 01:58 → 2N 02-25 20:50
DX: F32.A Depression, unspecified; Z82.49 Family history of ischemic heart disease and other diseases of the circulatory system; G62.9 Polyneuropathy, unspecified; K70.40 Alcoholic hepatic failure without coma; K21.9 Gastro-esophageal reflux disease without esophagitis; E87.2 Acidosis; D61.818 Other pancytopenia; R17 Unspecified jaundice; E83.39 Other disorders of phosphorus metabolism; N39.0 Urinary tract infection, site not specified; D62 Acute posthemorrhagic anemia; Z83.3 Family history of diabetes mellitus; D82.3 Immunodeficiency following hereditary defective response to Epstein-Barr virus; E87.6 Hypokalemia; R16.2 Hepatomegaly with splenomegaly, not elsewhere classified; F10.231 Alcohol dependence with withdrawal delirium; D53.9 Nutritional anemia, unspecified; Z82.3 Family history of stroke; F17.210 Nicotine dependence, cigarettes, uncomplicated; F32.9 Major depressive disorder, single episode, unspecified